=== PATIENT | male | born 2000 | race Caucasian/White ===

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

== ENCOUNTER 2022-11-27 00:31 | Emergency (ER) | payer SELFPAY ==
[2022-11-27 00:31] VITALS: BP 137/60; PULSE 77; RESP 18; TEMP 36.3; O2SAT 100; BMI 20.9
--- NOTE | 2022-11-27 00:59 | EX.ED.DYSGE1 ---
HPI History of Present Illness Chief Complaint: Sore Throat Narrative Narrative: Patient is a 22-year-old male with no significant past medical history. He reports 5 to 6 days of nasal congestion sore throat cough and ear pain. He reports his girlfriend has been sick with similar symptoms. He states he has been giving it time to resolve but he feels each day symptoms are worsening and secondary to this he comes in for evaluation [facility] Medical History no medical history no medical history Home Medications albuterol sulfate 90 mcg/actuation aerosol inhaler 2 puff inhalation Q4H PRN PRN Sob &/Or Wheezing 11/23/20 [History Last Taken Unknown] azelastine 137 mcg (0.1 %) nasal spray aerosol 2 spray intranasal BID #30 mL 11/27/22 [Rx Last Taken Unknown] cefdinir 300 mg capsule 300 mg PO BID 7 days #14 caps 11/27/22 [Rx Last Taken Unknown] prednisone 20 mg tablet 40 mg PO DAILY 7 days #14 tabs 11/27/22 [Rx Last Taken Unknown] Allergy/AdvReac Type Severity Reaction Status Date / Time Penicillins Allergy Rash Verified 07/01/21 09:36 Social History Smoking Status: Never smoker [facility] ED Constitutional Constitutional ED: Denies chills or fever(s) ENT ENT ED: Reports ear pain, rhinorrhea and sore throat Cardiovascular Cardiovascular: Denies chest pain Respiratory/Chest Respiratory/Chest: Reports cough; Denies dyspnea Gastrointestinal Gastrointestinal: Denies abdominal pain, diarrhea, nausea or vomiting Genitourinary Genitourinary ED: Denies dysuria Musculoskeletal Musculoskeletal: Reports myalgias Integumentary Denies rash Neurologic Neurologic: Reports headache(s) Hematologic/Lymphatic Hematologic/Lymphatic: Denies easy bleeding or easy bruising EXAM Physical Exam Const Vital Signs: 11/27/22 00:31 11/27/22 00:31 Temperature 97.3 F L 97.3 F L Temperature Source Temporal Temporal Pulse Rate 77 77 Respiratory Rate 18 18 Blood Pressure 137/60 H 137/60 H Blood Pressure Mean 85 85 Pulse Ox 100 100 Oxygen Delivery Method Room Air Room Air Positive well nourished and well developed General Appearance ED: well developed HEENT HEENT Narrative: Right TM is erythematous and bulging with positive air-fluid level consistent with otitis media. Left TM is retracted but shows no secondary changes to suggest infection and bilateral canals are normal. Patient's nasal mucosa is hyperemic and boggy with enlarged inferior nasal turbinates. Patient has diffuse erythema in the posterior pharynx with mild swelling and ulceration across the uvula consistent with uvulitis but otherwise no hard palate petechiae change in voice trismus or difficulty with secretions Eyes PERRL and EOMs intact bilaterally Neck supple Neck Narrative: No nuchal rigidity or meningeal signs present Positive anterior cervical lymphadenopathy noted Resp normal respiratory effort and clear to auscultation bilaterally Cardio regular rate and regular rhythm GI normal to inspection, nondistended, normoactive bowel sounds, non-tender, non-distended and no masses Auscultation: normoactive bowel sounds Palpation: soft Extremity normal to inspection Neuro oriented x3 and CN's II-XII intact bilaterally Sensorium / Orientation: alert Psych mental status grossly normal Skin no rashes or lesions noted MDM MDM MDM Narrative Medical decision making narrative: Patient arrived to the ER afebrile and in no acute distress. His constellation of symptoms congestion cough sore throat and ear pain are all consistent with viral syndrome. Secondary to his elected to check for influenza and COVID but also rapid strep because of his sore throat. Viral swabs were negative and strep swab was also negative consistent with his physical exam. At this time I do feel he has a underlying viral syndrome which has been the main cause of his symptoms but his physical exam today also shows a secondary ear infection on the right. As it is concerning that this could be bacterial in nature I will put him on a round of antibiotic. However as he does not have signs of peritonsillar retropharyngeal abscess or respiratory distress he can be discharged home with symptomatic care Discharge Plan Triage Chief Complaint: Sore Throat ED Provider: Jeremiah Alonso Dx/Rx/DC Orders Clinical Impression: Acute right otitis media, Uvulitis, Viral syndrome Instructions: ED Otitis Media Antibiotic ..., ED Uvulitis, ED Viral Syndrome (Adult) Prescriptions: New prednisone 20 mg tablet 40 mg PO DAILY 7 Days Qty: 14 0RF cefdinir 300 mg capsule 300 mg PO BID 7 Days Qty: 14 0RF azelastine 137 mcg (0.1 %) aerosol,spray 2 spray intranasal BID Qty: 30 0RF Rx Instructions: administer into each nostril No Action albuterol sulfate 8.5 GM HFA aerosol inhaler 2 puff INHALATION Q4H PRN PRN (Reason: Sob &/Or Wheezing) Primary Care Provider: Care Physician,No Primary Referrals: Ji,Cristel, DO [Med Staff - Pharmacy Account Director] - Care Physician,No Primary [Primary Care Provider] - Disposition Disposition: Home, Self Care
[2022-11-27] MEDS: dexAMETHasone 10 MG/ML Vial PO.IVFORM (01:00)
[2022-11-27] MEDS: Cefdinir 300 MG Capsule PO (01:48)
== END 2022-11-27 01:50 | disposition home or self-care (01) ==
PROVIDERS: Emergency Provider Emergency Medicine; Visit Provider Emergency Medicine
DX: H66.91 Otitis media, unspecified, right ear (principal); B34.9 Viral infection, unspecified
CPT/HCPCS: 87428; 87880; 99283

== ENCOUNTER 2024-10-18 12:45 | Emergency (ER) | payer OTHER, SELFPAY ==
[2024-10-18 12:45] VITALS: BP 151/81; PULSE 128; PULSE 131; RESP 26; TEMP 36.7; O2SAT 100; BMI 24.2
[2024-10-18 12:55] VITALS: O2SAT 97
--- NOTE | 2024-10-18 13:02 | RAD_ITS ---
STUDY: X-RAY CHEST REASON FOR EXAM: Male, 24 years old. cough TECHNIQUE: Frontal and lateral views of the chest. COMPARISON: June 18, 2017 FINDINGS: The lungs are clear and expanded. There is no demonstrated pleural abnormality. Normal size heart. Normal mediastinum and oren. Normal visualized pulmonary arteries. Normal visualized aortic arch and descending thoracic aorta. Normal visualized thoracic spine. Normal visualized ribs, clavicles, and shoulders. There is no demonstrated abnormality of the visualized soft tissue structures of the upper abdomen. RAD/Chest PA and Lateral IMPRESSION: Normal x-ray examination of the chest. Electronically Signed: Tad Diamond MD at 13:27 [facility] ,
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
[2024-10-18 14:45] VITALS: BP 100/70; PULSE 130; RESP 20; TEMP 38.1; O2SAT 97
[2024-10-18 15:26] VITALS: PULSE 132; RESP 21; O2SAT 97
[2024-10-18] MEDS: Ipratropium/Albuterol Sulfate 3 ML AMPUL.NEB INHALATION (15:26)
[2024-10-18] MEDS: Albuterol 2.5 MG/3 ML VIAL.NEB. INHALATION (15:26)
[2024-10-18] MEDS: Acetaminophen 500 MG Tablet 1000 MG PO (15:46)
[2024-10-18] MEDS: predniSONE 20 MG Tablet 60 MG PO (15:47)
== END 2024-10-18 15:50 | disposition home or self-care (01) ==
PROVIDERS: Emergency Provider Emergency Medicine; Visit Provider Emergency Medicine
DX: J20.9 Acute bronchitis, unspecified (principal); F17.210 Nicotine dependence, cigarettes, uncomplicated; B34.9 Viral infection, unspecified; J45.901 Unspecified asthma with (acute) exacerbation
CPT/HCPCS: 71046; 87631; 94640; 99283

== ENCOUNTER 2025-06-03 02:03 | Emergency (ER) | payer OTHER, SELFPAY ==
[2025-06-03 02:05] VITALS: BP 151/96; PULSE 65; RESP 18; TEMP 36.6; O2SAT 100
--- OUTSIDE RECORDS SUMMARY | 2025-06-03 02:17 | XMS RPT_ITS | CCD ---
Author Organization [facility] Care Team Providers Care Park Services Specialist Name Role Phone JUAREZ MAJANO Unavailable Unavailable JUAREZ MAJANO Unavailable Unavailable PROVIDER, UNKNOWN Unavailable Unavailable PROVIDER, UNKNOWN Unavailable Unavailable Tiffanie Barbour Primary Care Provid er Esperanza Garcia Primary Care Provider SHANITA SCOTT Attending Unavailable SHANITA SCOTT Primary Care Unavailable Tiffanie Barbour MD Primary Care Pro vider Daniel HOSPITAL TRAY SERVICE WORKER.Shanita BURKETT Primary Care Provider Robert Eli Attending Unavailable Care Physician, No Primary Primary Care Unava ilable SHANITA SCOTT Primary Care Unavailable SELF Referring Unavailable KATE TORRES Attending Unavailable Allergies Allergy Classification Reported Allergen(s) Allergy Type Date of Onset Reaction(s) Facility (12 sources) Penicillins; Translations: [PENICILLINS] Propensity to adverse reactions to drug (disorder) 4 GI Upset [facility] Repository Medications Current Medications Medication Drug Class(es) Dates Sig (Normalized) Sig (Original) [id number] 200 actuat albuterol 0.09 mg/actuat metered dose inhaler (8 sources) beta2-Adrenergic Agonist Start: 09-28-2023 End: 04-14-2025 take 2 puff(s) by inhalation every four hours as needed albuterol HFA (PROAIR HFA) 90 mcg/actuation inhaler Indications: Wheeze , Family history of asthma Inhale 2 puffs as instructed every 4 hours as needed. 1 each 04/15/2025 Active Start: 08-23-2022 take 2 puff(s) by in halation every four hours as needed albuterol HFA (PROAIR HFA) 90 mcg/actuation inhaler Indications: Wheeze , Family history of asthma Inhale 2 Puffs as instructed every 4 hours as needed. 1 Each 0 08/23/2022 Active Start: 11-23-2020 take 1 puff(s) by in halation every four hours as needed Albuterol Sulfate Active 2 PUFF INHALATION EVERY 4 HOURS NEEDED November 23, 2020 12:00am Comment on above: Inhale 2 Puffs as in structed every 4 hours as needed. azelastine hydrochloride 0.137 mg/actuat metered dose nasal spray (1 source) Histamine-1 Receptor Antagonist Start: 11-27-19 take 1 spray(s) nasal route twice daily Azelastine Active 2 SPRAY INTRANASAL TWICE A DAY November 27, 2022 12:00am administer into each nostril cefdinir 300 mg oral capsule (1 source) Cephalosporin Antibacterial Start: 11-27-19 take 300 mg by mouth twice daily Cefdinir Active 300 MG PO TWICE A DAY 14 November 27, 2022 12:00am clindamycin 150 mg oral capsule (1 source) Lincosamide Antibacterial Start: 09-13-20 End: 09-18-20 take 2 capsules by mouth three times daily clindamycin (CLEOCIN) 150 mg capsule Take 2 capsules by mouth three times daily for 5 days. 30 capsule 0 09/13/2022 09/18/2022 Active Comment on above: Take 2 capsules by out three times daily for 5 days. doxycycline monohydrate 100 mg oral tablet (1 source) Tetracycline-class Drug Start: 08-23-20 End: 08-30-20 take 1 tablet by mouth twice daily doxycycline monohydrate 100 mg tablet Indications: Community acquired pneumonia of right lower lobe of lung Take 1 tablet by mouth twice daily for 7 days. 14 tablet 0 08/23/2022 08/30/2022 Active Comment on above: Take 1 tablet by dom[place] th twice daily for 7 days. famotidine 20 mg oral tablet (2 sources) Histamine-2 Receptor Antagonist Start: 05-20-20 take 1 tablet by mouth once daily famotidine (PEPCID) 20 mg tablet Take 1 tablet by mouth once daily. 30 tablet 05/20/2025 Active lactobacillus acidophilus 460 mg oral capsule (1 source) Start: 09-13-20 Lactobacillus acidophilus (FLORAJEN ACIDOPHILUS) 20 billion cell cap Take 460 mg by mouth once daily. 30 capsule 0 09/13/2022 Active Start: 09-13-2022 Lactobacillus acidophilus (FLORAJEN ACIDOPHILUS) 20 billion cell cap Take 460 mg by mouth once daily. 30 capsule 0 09/13/2022 Active Comment on above: Take 460 mg by mouth once daily. predniSONE 20 mg oral tablet (5 sources) Start: 05-22-2025 End: 05-31-2025 take 3 tablets by mouth once daily, then take 2 tablets by mouth once daily, then take 1 tablet by mouth once daily predniSONE (DELTASONE) 20 mg tablet Indications: Poison rosio Take 3 tablets by mouth once daily for 3 days, THEN 2 tablets once daily for 3 days, THEN 1 tablet once daily for 3 days. 18 tablet 05/22/2025 05/31/2025 Active Start: 05-20-2025 End: 05-29-2025 predniSONE (DELTASONE) 10 mg tablet Take 4 tabs daily for 3 days, then 2 tabs daily for 3 days, then 1 tab daily for 3 days with food. 21 tablet 05/20/2025 05/22/2025 Discontinued Start: 11-27-2022 take 40 mg by mouth once daily Prednisone Active 40 MG PO DAILY 14 November 27, 2022 12:00am Start: 08-23-2022 End: 08-28-2022 take 2 tablets by mouth once daily predniSONE (DELTASONE) 20 mg tablet Take 2 tablets by mouth once daily for 5 days. 10 tablet 0 08/23/2022 08/28/2022 Active Comment on above: Take 2 tablets by [facility] once daily for 5 days. triamcinolone acetonide 0.46308 mg/mg topical ointment (2 sources) Corticosteroid Start: 05-20-2025 triamcinolone (KENALOG) 0.025 % ointment Apply to affected area three times a day. 80 g 05/20/2025 Active Completed/Discontinued Medications Medication Drug Class(es) Dates Sig (Normalized) Sig (Original) benzonatate 100 mg oral capsule (2 sources) Non-narcotic Antitussive Start: 11-26-2019 take 100-200 mg by mouth every eight hours as needed for cough and cough benzonatate (TESSALON PERLES) 100 mg capsule Indications: Cough Take 1-2 capsules by mouth three times daily as needed for Cough. 30 capsule 0 11/26/2019 Active Comment on above: Take 1-2 capsules by mouth three times daily as needed for Cough. fexofenadine hydrochloride 180 mg oral tablet (2 sources) Histamine-1 Receptor Antagonist Start: 07-28-2019 take 1 tablet by mouth once daily fexofenadine (JABIER) 180 mg tablet Take 180 mg by mouth once daily. 11 07/28/2019 Active Comment on above: Take 180 mg by mouth once daily. 12 hr guaiFENesin 600 mg extended release oral tablet (2 sources) Start: 03-18-2019 take 2 tablets by mouth twice daily guaiFENesin (MUCINEX) 600 mg 12 hr tablet Indications: Viral URI with cough Take 2 tablets by mouth twice daily. 30 tablet 0 03/18/2019 Active Comment on above: Take 2 tablets by mo [facility] twice daily. lidocaine hydrochloride 20 mg/ml mucous membrane topical solution (4 sources) Antiarrhythmic, Amide Local Anesthetic Start: 03-18-2019 take 5 mL by mouth every four hours as needed lidocaine viscous (LIDOCAINE VISCOUS) 2 % solution Take 5 mL by mouth every 4 hours as needed. 100 mL 0 11/17/2020 Active Comment on above: Gargle and spit 10-1 5mLs every 3-4 hours as need for throat discomfort. Take 5 mL by mouth e very 4 hours as needed. loratadine 10 mg oral tablet (2 sources) Start: 02-05-2015 take 1 tablet by mouth once daily loratadine (CLARITIN) 10 mg tablet Take 1 tablet by mouth once daily. 30 tablet 11 02/05/2015 Active Comment on above: [facility] Problems Active Problems Problem Classification Problem Date Documented Da te Episodic/Chronic Acute bronchitis (1 source) Acute bronchitis, unspecified; Translations: [Acute bronchitis, unspecified] Onset: 11-18-2024 Episodic Allergic reactions (3 sources) Contact dermatitis due to plants; Translations: [Unspecified contact dermatitis due to plants, except food] Onset: 05-20-2025 05-20-2025 Episodic Asthma (5 sources) Mild intermittent asthma, uncomplicated; Translations: [Mild intermittent asthma] Onset: 09-28-2023 09-28-2023 Chronic Diseases of mouth; excluding dental (1 source) Uvulitis; Translations: [Cellulitis and abscess of mouth] Episodic Disorders of teeth and jaw (1 source) Infection of tooth; Translations: [Periapical abscess without sinus] Episodic Fracture of upper limb (1 source) Fracture of phalanx of finger; Translations: [Fracture of unspecified phalanx of unspecified finger, initial encounter for closed fracture] Episodic Open wounds of extremities (1 source) Laceration of finger; Translations: [Laceration without foreign body of unspecified finger without damage to nail, initial encounter] Episodic Open wounds of head; neck; and trunk (1 source) Nail finding; Translations: [Avulsion of nail plate] Episodic Other eye disorders (1 source) Pain in eye; Translations: [Ocular pain, unspecified eye] Episodic Other lower respiratory disease (1 source) Wheezing; Translations: [Wheeze] Onset: 09-28-2023 Episodic Other upper respiratory disease (5 sources) Allergic rhinitis; Translations: [Allergic rhinitis, unspecified] Onset: 10-24-2007 09-28-2023 Chronic Other upper respiratory infections (1 source) Pharyngitis; Translations: [Acute pharyngitis, unspecified] Episodic Otitis media and related conditions (1 source) Acute right otitis media; Translations: [Otitis media, unspecified, right ear] Episodic Residual codes; unclassified (1 source) Family history of asthma and other chronic lower respiratory diseases; Translations: [Family history of asthma] Onset: 09-28-2023 Episodic Residual codes; unclassified (1 source) Tobacco use; Translations: [Vapes nicotine containing substance] Onset: 09-28-2023 Episodic Residual codes; unclassified (1 source) Family history of asthma; Translations: [Family history of asthma and other chronic lower respiratory diseases] 04-14-2025 Episodic Viral infection (1 source) Viral disease; Translations: [Viral infection, unspecified] Episodic Past or Other Problems Problem Classification Problem Date Documented Da te Episodic/Chronic Other lower respiratory disease (5 sources) Wheezing; Translations: [Wheezing] Onset: 09-28-2023 09-28-2023 Episodic Residual codes; unclassified (4 sources) Nicotine-filled electronic cigarette user; Translations: [Tobacco use] Onset: 09-28-2023 09-28-2023 Episodic Results Test Name Value Interpretation Reference Range Facility [facility] 05-20-2025 CNOV Office Visit (UCWSTR ) LIAM CAMERON ([id number]) 4 M Date Time Provider Department 05/20/25 10:45 AM KATE TORRES WS During your visit today, we recorded the following information about you: Temperature Pulse Respiration Blood pressure 97.4 degrees 56/minute 16/minute 128/70 Weight 77 kg Kate Torres APRN.TIRE CENTER SUPERVISOR 05/20/2025 1:18 PM Signed Subjective Patient ID: Liam is a 24 year old male who presents for Rash (upper body, itching x 4 days). HPI Patient presents to clinic from home with spouse via personal vehicle with rash since Monday Possible exposure to poison rosio or oak on Monday afternoon +itchiness +discomfort Linear rash present on BUE, midback, abdomen, left ear and right side of neck S/s unrelieved with benadryl PO and topical nor calamine lotion Denies wheezing, DANIELE nor SOB Denies food nor environmental allergies Allergic to PCN Albuterol PRN for asthma, last use last year Social ETOH use 3-4x a week, daily nictone vape and no street drug use PAST MEDICAL HISTORY Diagnosis Date Asthma PAST SURGICAL HISTORY Procedure Laterality Date NONE ALLERGIES Penicillins MEDICATIONS albuterol HFA (PROAIR HFA) 90 mcg/actuation inhaler Inhale 2 puffs as instructed every 4 hours as needed. No family history on file. Social History Tobacco Use Smoking status: Never Smokeless tobacco: Never Tobacco comments: VAPE Vaping Use Vaping status: current everyday user Substances: Nicotine Substance Use Topics Alcohol use: Yes Drug use: Never Objective BP 128/70 Pulse (!) 56 Temp 36.3 ?C (97.4 ?F) Resp 16 Wt 77 kg (169 lb 12.1 oz) SpO2 97% BMI 23.02 kg/m? Physical Exam Vitals and nursing note reviewed. Constitutional: Appearance: Normal appearance. He is normal weight. HENT: Head: Normocephalic. Right Ear: Tympanic membrane normal. Left Ear: Tympanic membrane normal. Nose: Nose normal. Mouth/Throat: Lips: [place]. Mouth: Mucous membranes are moist. Pharynx: Oropharynx is clear. Uvula midline. Tonsils: 1+ on the right. 1+ on the left. Eyes: Extraocular Movements: Extraocular movements intact. Pupils: Pupils are equal, round, and reactive to light. Cardiovascular: Rate and Rhythm: Normal rate. Pulses: Normal pulses. Pulmonary: Effort: Pulmonary effort is normal. Breath sounds: Normal breath sounds and air entry. No decreased breath sounds or wheezing. Abdominal: General: Bowel sounds are normal. Palpations: Abdomen is soft. Musculoskeletal: General: Normal range of motion. Cervical back: Normal range of motion. Skin: General: Skin is warm. Capillary Refill: Capillary refill takes less than 2 seconds. Findings: Erythema and rash present. Rash is vesicular. Comments: +streak like, linear rash present Neurological: Mental Status: He is alert and oriented to person, place, and time. Psychiatric: Mood and Affect: Mood normal. Behavior: Behavior normal. Thought Content: Thought content normal. Judgment: Judgment normal. Assessment AND Plan Dermatitis due to plant ASSESSMENT/PLAN: 1. Dermatitis due to plant - ICD9: 692.6, ICD10: L25.5 - Begin oral steroid tx -Prednisone taper - Begin oral pepcid for allergic reaction relief - Begin topical steriod tx with Kenalog topical, do not apply to face nor genitals - May use OTC Anti itch therapy such as Calamine lotion, Oatmeal baths, and Oral Benydryl recommended prn - discussed skin care of rash - wash clothing and bed linen in warm water and dry thoroughly - wear long sleeve, long socks and pants when outdoors in [place] areas - Refrain from scratching if possible to prevent skin breaking - return if skin breaks, develop fever, chills, shortness of breath or rash spreads to genitals or face - return if symptoms persist or worsen. Karen Colmenares NP student TEACHING PROVIDER (Physician/PA/HOSPITAL TRAY SERVICE WORKER) NOTE OF PERSONAL INVOLVEMENT IN CARE: I have personally seen and examined the patient and performed the medical decision-making components. I have reviewed the Advanced Practice Registered Nurse (HOSPITAL TRAY SERVICE WORKER) Student's documentation and verified the findings in the note as written. Any additions or changes are noted in bold/italics. Signature: Kate Torres Date: 05/20/2025 Time: 1:17 PM Referring Provider: SELF [200] Allergies As of Date: 05/20/2025 Noted Allergy Reaction PENICILLINS 12/24/2013 8 - GI Upset Date Reviewed: 05/20/2025 Reviewed by: Echo Kearney MA - Fully Assessed Reason for Visit: Rash [1087] Cmt: upper body, itching x 4 days Primary Visit Diagnosis:Dermatitis due to plant [L25.5] Order(s):predniSONE (DELTASONE) 10 mg tabletTake 4 tabs daily for 3 days, then 2 tabs daily for 3 days, then 1 tab daily for 3 days with food.Disp: 21 tabletRfl: 0 triamcinolone (KENALOG) 0.025 % ointmentApply to affected area three times a day.Disp: 80 (more content not included)... Normal [facility] Chest PA and Lateralon 10-18 Chest PA and Lateral [facility] Imaging Services [address] [place] [id number] Chest PA and Lateral MR#: [id number] Acct: [id number] Name: LIAM CAMERON Rep #: [id number] : 2000 M 24 From: Tad Ramon PCP: Care Physician,No Primary Status: REG ER Study: Chest PA and Lateral Date of Exam: 10/18/24 Exam# [id number] Ordering Dr: Nica Oliveira [id number] STUDY: X-RAY CHEST REASON FOR EXAM: Male, 24 years old. cough TECHNIQUE: Frontal and lateral views of the chest. COMPARISON: June 18, 2017 FINDINGS: The lungs are clear and expanded. There is no demonstrated pleural abnormality. Normal size heart. Normal mediastinum and oren. Normal visualized pulmonary arteries. Normal visualized aortic arch and descending thoracic aorta. Normal visualized thoracic spine. Normal visualized ribs, clavicles, and shoulders. There is no demonstrated abnormality of the visualized soft tissue structures of the upper abdomen. RAD/Chest PA and Lateral IMPRESSION: Normal x-ray examination of the chest. Electronically Signed: Tad Diamond MD at 13:27 EST Reading Location ID and State: [facility] / ID Tel , Service support , CC: BLAS Manzano; No Primary Care Physician Unloading Checker: Signed [facility] Emergency Department Summary on 10-18-2024 Emergency Department Summary [facility] Medical Records Department [address] [place] [id number] Emergency Department Summary 10/18/24 MR#: [id number] Acct: [id number] Name: LIAM CAMERON Rep #: [id number] : 2000 From: Nica ODONNELL PCP: Care Physician,No Primary Status:DEP ER Location: ED HPI History of Present Illness Chief Complaint: Cough Narrative Narrative: 24-year-old male with past medical history of asthma presents with 2 days of fever, chills, body aches, cough and shortness of breath. He tried Robitussin but states she cannot stop coughing. He has been using his inhaler. He smokes. [facility] Home Medications ???Medication ???Instructions ???Recorded ???Last Taken ???Type albuterol sulfate 90 mcg/actuation 2 puff inhalation Q4H PRN PRN Sob 11/23/20 Unknown History aerosol inhaler /Or Wheezing azelastine 137 mcg (0.1 %) nasal 2 spray intranasal BID #30 mL 11/27/22 Unknown Rx spray cefdinir 300 mg capsule 300 mg PO BID 7 days #14 caps 11/27/22 Unknown Rx prednisone 20 mg tablet 40 mg (2 x 20 mg) PO DAILY 7 days 11/27/22 Unknown Rx #14 tabs albuterol sulfate 90 mcg/actuation 1 - 2 puff inhalation Q4H PRN PRN 10/18/24 Unknown Rx aerosol inhaler (Ventolin HFA) Wheezing #1 device azithromycin 250 mg tablet See Rx Instructions PO .COMPLEX #6 10/18/24 Unknown Rx (Zithromax) tabs prednisone 20 mg tablet 40 mg (2 x 20 mg) PO DAILY 5 days 10/18/24 Unknown Rx #10 tabs Allergy/AdvReac Type Severity Reaction Status Date / Time Penicillins Allergy Rash Verified 10/18/24 12:45 Social History Smoking Status: Current every day smoker tobacco type: e-cigarettes ROS ROS ED ROS Narrative Constitutional: Positive for fever, chills, malaise ENT: Positive for sore throat, ear pain, rhinorrhea. Respiratory: Positive for shortness of breath, cough. GI: Negative for abdominal pain, nausea, vomiting, diarrhea. EXAM Physical Exam Narrative Exam Narrative: CONST: Patient sitting in no acute distress. EYES: Normal inspection. ENT: Normal posterior oropharynx, moist mucous membranes. Nares clear, normal TMs. NECK: Normal inspection. No meningismus. RESP: Frequent dry cough, lungs clear. CVS: Regular rate and rhythm, no murmur, no gallop. SKIN: Color normal, no rash, warm, dry, intact. EXTREMITIES: Normal appearance, no pedal edema. NEURO: Alert and answering questions appropriately. PSYCH: Normal affect. Const Vital Signs: 10/18/24 12:45 10/18/24 12:45 10/18/24 12:55 Temperature 98.1 F Temperature Source Oral Pulse Rate 131 H 128 H Respiratory Rate 26 H Respiratory Effort Normal Respiratory Depth Normal Respiratory Pattern Normal Blood Pressure 151/81 H Blood Pressure Mean 104 Pulse Ox 100 Oxygen Delivery Method Room Air Room Air 10/18/24 14:45 10/18/24 15:26 10/18/24 15:26 Temperature 100.6 F H Temperature Source Oral Pulse Rate 130 H 132 H Respiratory Rate 20 H 21 H Respiratory Effort Respiratory Depth Respiratory Pattern Blood Pressure 100/70 Blood Pressure Mean 80 Pulse Ox 97 97 Oxygen Delivery Method Room Air Room Air Physical Exam Const Vital Signs: 10/18/24 12:45 10/18/24 12:45 10/18/24 12:55 Temperature 98.1 F Temperature Source Oral Pulse Rate 131 H 128 H Respiratory Rate 26 H Respiratory Effort Normal Respiratory Depth Normal Respiratory Pattern Normal Blood Pressure 151/81 H Blood Pressure Mean 104 Pulse Ox 100 Oxygen Delivery Method Room Air Room Air 10/18/24 14:45 10/18/24 15:26 10/18/24 15:26 Temperature 100.6 F H Temperature Source Oral Pulse Rate 130 H 132 H Respiratory Rate 20 H 21 H Respiratory Effort Respiratory Depth Respiratory Pattern Blood Pressure 100/70 Blood Pressure Mean 80 Pulse Ox 97 97 Oxygen Delivery Method Room Air Room Air MDM MDM MDM Narrative Medical decision making narrative: Differential: Viral illness, pneumonia Patient had 2 days of constellation of symptoms of myalgias, sore throat, congestion and cough. He is frequently coughing during exam but otherwise appears nontoxic. He was tachycardic around 130 but I think this is because he was coughing so heavily. He was able to speak to me in full sentences in no distress but has a frequent cough with expiratory wheezing. He does not have chest pain or shortness of breath. CXR shows no acute process and viral swab is negative for COVID/influenza/RSV. He initially declined Tylenol or Motrin for his body aches but then developed a fever in the ED and was given Tylenol, DuoNebs, and prednisone 60 mg. I prescribed a prednisone burst, refilled his albuterol inhaler, and azithromycin to cover atypical pneumonia. He was (more content not included)... [facility] M100.678on 10-18-2024 M100.678 Pending SARS-CoV-2 (COVID 19) Negative INFLUENZA A Negative INFLUENZA B Negative RSV PCR Negative [facility] Comment on above: Performed By: #### M 100.678 #### [facility] [address] [place], [address] CNOVon 09-28-2023 CNOV Office Visit (DELFINO) LIAM CAMERON ([id number]) 4 M Date Time Provider Department 09/28/23 2:20 PM SHANITA SCOTT During your visit today, we recorded the following information about you: Temperature Pulse Respiration Blood pressure 98.4 degrees 51/minute 18/minute 108/64 Weight Height 77.1 kg 1.829 m Shanita Scott APRN.TIRE CENTER SUPERVISOR 09/28/2023 3:10 PM Signed [facility] Shanita Scott HOSPITAL TRAY SERVICE WORKER-TIRE CENTER SUPERVISOR [address] [place] [address] Dept Dept. Visit Date: September 28, 2023 Mr.[place] Julissa Cameron Date of : 2000 MRN/E #: [id number] Chief Complaint: Patient presents with: Rx Refills Establish Care History of Present Illness Liam Cameron is a 23 year old male presenting today as a new patient to establish care. I reviewed past medical, surgical, social, and family histories today and updated chart. Allergies, chronic medications, and supplements were also reviewed. PMH of exercise induced asthma. He hasn't had a PCP in a few years. He needs a refill of his Albuterol inhaler today. States his asthma usually only acts up with exercise or strenuous exertion or when he is exposed to dust, etc while at work. 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 He denies nay hospitalizations or ER visits for his asthma. He does vape nicotine products. PAST MEDICAL HISTORY Diagnosis Date Asthma PAST SURGICAL HISTORY Procedure Laterality Date NONE Social History Tobacco Use Smoking status: Never Smokeless tobacco: Never Tobacco comments: VAPE Vaping Use Vaping Use: current everyday user Substances: Nicotine Substance Use Topics Alcohol use: Yes Drug use: Never Social History Social History Narrative Not on file No family history on file. ALLERGIES Allergen Reactions Penicillins GI Upset Current Outpatient Medications Medication Sig albuterol HFA (PROAIR HFA) 90 mcg/actuation inhaler Inhale 2 Puffs as instructed every 4 hours as needed. No current facility-administered medications for this visit. Review of Systems Review of Systems Constitutional: Negative for appetite change, chills, diaphoresis, fatigue, fever and unexpected weight change. HENT: Positive for rhinorrhea. Negative for congestion, ear pain, sinus pressure, sinus pain, sore throat and tinnitus. Eyes: Negative for visual disturbance. Respiratory: Positive for cough (when his asthma acts up), shortness of breath (with exertion) and wheezing (sometimes). Negative for chest tightness. Cardiovascular: Negative for chest pain, palpitations and leg swelling. Gastrointestinal: Negative for abdominal pain, constipation, diarrhea, nausea and vomiting. Endocrine: Negative. Genitourinary: Negative. Musculoskeletal: Negative. Skin: Negative. Allergic/Immunologic: Negative for food allergies and immunocompromised state. Neurological: Negative for dizziness, seizures, syncope, light-headedness and headaches. Hematological: Negative. Psychiatric/Behavioral : Negative. Vital Signs BP 108/64 Pulse 51 Temp 98.4 Resp 18 Ht 6' 0 (1.83m) Wt 170 lb (77.1kg) SpO2 98% BMI 23.05 kg/(m2). Physical Exam Vitals and nursing note reviewed. Constitutional: Appearance: Normal appearance. HENT: Mouth/Throat: Mouth: Mucous membranes are moist. Eyes: Pupils: Pupils are equal, round, and reactive to light. Cardiovascular: Rate and Rhythm: Normal rate and regular rhythm. Heart sounds: Normal heart sounds. Pulmonary: Effort: Pulmonary effort is normal. Breath sounds: Normal breath sounds. Skin: General: Skin is warm and dry. Neurological: Mental Status: He is alert and oriented to person, place, and time. Psychiatric: Mood and Affect: Mood normal. Behavior: Behavior normal. Visit Diagnoses (J45.20) Mild intermittent asthma without complication (primary encounter diagnosis) (R06.2) Wheeze (Z82.5) Family history of asthma (Z72.0) Vapes nicotine containing substance Assessment and Plan 1. Mild intermittent asthma without complication - ICD9: 493.90, ICD10: J45.20 (primary diagnosis) - Mild intermittent asthma stable - Continue current medications - Avoidance of triggers recommended - Asthma education: Environmental control: avoidance of precipitants and use of allergy medications - Follow up as needed should any other issues arise. 2. Wheeze - ICD9: 786.07, ICD10: R06.2 - ALBUTEROL SULFATE HFA 90 MCG/ACTUATION AEROSOL INHALER 3. Family history of asthma - ICD9: V17.5, ICD10: Z82.5 - ALBUTEROL SULFATE HFA 90 MCG/ACTUATION AEROSOL INHALER 4. Vapes nicotine containing substance - ICD9: 305.1, ICD10: Z72.0 - Cessation encouraged. - Physiologic and physical aspects of t (more content not included)... Normal [facility] XR Chest PA and Lateralon IMPRESSION: Questionable small patchy or reticular opacities overlying the right upper lung. Consider follow-up. Unloading Checker: MARGIE Transcribe Date/Time: Aug 23 2022 9:48A Dictated by : NELSON NEWTON MD This examination was interpreted and the report reviewed and electronically signed by: NELSON NEWTON MD on Aug 23 2022 9:54AM [facility] DIVISION OF RADIOLOGY * * *Final Report* * * DATE OF EXAM: Aug 23 2022 9:46AM WOX 5291 - XR CHEST 2V FRONTAL/LAT / PROCEDURE REASON: Wheeze * * * * Physician Interpretation * * * * EXAMINATION: CHEST RADIOGRAPH (2 VIEW FRONTAL & LATERAL) CLINICAL HISTORY: Wheeze MQ: XC2_6 EXAM DATE/TIME: 08/23/2022 9:46 AM COMPARISON: Chest x-ray on 08/09/2019 RESULT: Lines, tubes, and devices: None. Lungs and pleura: Questionable small patchy or reticular opacities overlying the right upper lung. No lung mass. No pleural effusion. No pneumothorax. Cardiomediastinal silhouette: Normal cardiomediastinal silhouette. Bones and soft tissues: Unremarkable. DIVISION OF RADIOLOGY Provider, [facility] - 08/23/2022 * * *Final Report* * * DATE OF EXAM: Aug 23 2022 9:46AM WOX 5291 - XR CHEST 2V FRONTAL/LAT / PROCEDURE REASON: Wheeze * * * * Physician Interpretation * * * * EXAMINATION: CHEST RADIOGRAPH (2 VIEW FRONTAL & LATERAL) CLINICAL HISTORY: Wheeze MQ: XC2_6 EXAM DATE/TIME: 08/23/2022 9:46 AM COMPARISON: Chest x-ray on 08/09/2019 RESULT: Lines, tubes, and devices: None. Lungs and pleura: Questionable small patchy or reticular opacities overlying the right upper lung. No lung mass. No pleural effusion. No pneumothorax. Cardiomediastinal silhouette: Normal cardiomediastinal silhouette. Bones and soft tissues: Unremarkable. IMPRESSION IMPRESSION: Questionable small patchy or reticular opacities overlying the right upper lung. Consider follow-up. Unloading Checker: MARGIE Transcribe Date/Time: Aug 23 2022 9:48A Dictated by : NELSON NEWTON MD This examination was interpreted and the report reviewed and electronically signed by: NELSON NEWTON MD on Aug 23 2022 9:54AM EST [facility] Radiology Study observation (narrative) [facility] XR Chest PA and LateralOrder ed By: [facility] Provider on 08-23-2022 [facility] Progress Noteon 08-09-2021 Web Page Designer Authentication Interface Message Text Patient ID: Liam Cameron is a 20 y.o. male. His chief complaint(s) include: Pharyngitis Assessment 1. Sore throat Plan Liam was seen today for pharyngitis. Diagnoses and all orders for this visit: Sore throat - POCT rapid strep A antigen - POCT mononucleosis antibodies (Monospot) - Strep culture (Clinic Collect) Rest and fluids Tylenol/motrin for discomfort Call for any questions/concerns/pro blems/changes or worsening of sx. Return if symptoms worsen or fail to improve. Subjective He is unaccompanied. Pharyngitis The onset has been acute. The duration has been 5 days. The pattern is persistent. The course is worsening. Characterized by burning, aching and sharp. Symptoms are relieved by ibuprofen and acetaminophen. The patient's symptoms have included a fever, congestion and cough. The patient's symptoms have included no difficulty breathing, no wheezing, no vomiting, no diarrhea and no rash. The patient has had a maximum temperature of 101 degrees. The patient has been exposed to no sick contacts. COVID negative 2 days ago Primary Care Review of Systems Objective Vital Signs 08/09/21 1121 Temp: 36.6 C (97.9 F) TempSrc: Temporal Weight: 68.9 kg There is no height or weight on file to calculate BMI. Physical Exam Nursing note reviewed. Constitutional: He appears well. He is active. No distress. HENT: Head: Atraumatic. Ears: Right Ear: Tympanic membrane normal. Left Ear: Tympanic membrane normal. Nose: Nasal discharge present. Mouth/Throat: Mucous membranes are moist. Pharynx erythema present. Eyes: Conjunctivae are normal. Cardiovascular: Normal rate and regular rhythm. Heart murmur not heard. Pulmonary/Chest: Breath sounds normal. There is normal air entry. Neurological: He is alert. Vitals reviewed: Temperature 36.6 C (97.9 F), temperature source Temporal, weight 68.9 kg. Last Result POCT mononucleosis antibodies (Monospot) Collection Time: 08/09/21 11:46 AM Result Value Ref Range Monospot (Heterophile Antobodies) Negative Negative Red Control Line *Present Clear Background *Present Within Expiration *Yes Lot Number [id number] POCT rapid strep A antigen Collection Time: 08/09/21 11:31 AM Result Value Ref Range Strep A Antigen None Detected None Detected Yellow Solution *Present Red Control Line *Present Clear Background *Present Lot Number [id number] Normal [facility] Strep Cultureon 08-09-2021 Strep Culture Is this specimen malcolm ng sent to an external lab?->No Release to patient->Automatic 23853&Throat swab^^^Throat swab&Throat swab Strep Culture: No Beta hemolytic Streptococci isolated. Source: THRSW Collected: 08/09/21 11:36 Site: Throat swab Received : 08/09/21 19:56 Strep Culture FINAL 08/11/21 11:38 No Beta hemolytic Streptococci isolated. Normal [facility] Comment on above: Performed By: #### S MARIAA #### [place] [address] Progress Noteon 11-19-2020 Web Page Designer Authentication Interface Message Text Patient ID: Liam Cameron is a 20 y.o. male. His chief complaint(s) include: Otalgia (pain for almost 6 days, right side only) and Pharyngitis (having mucous as well, right side only) Assessment 1. Acute suppurative otitis media of right ear without spontaneous rupture of tympanic membrane, recurrence not specified Plan Liam was seen today for otalgia and pharyngitis. Diagnoses and all orders for this visit: Acute suppurative otitis media of right ear without spontaneous rupture of tympanic membrane, recurrence not specified - cefdinir (OMNICEF) 300 MG capsule; Take 1 Capsule (300 mg) by mouth 2 times daily for 10 days Return if symptoms worsen or fail to improve. Will treat right AOM with cefdinir. Also discussed supportive care measures for symptoms. Will follow up if not improving in 2-3 days after starting antibiotics. Subjective HPI Comments: Right ear pain and sore throat x 5-6 days, not improving. Went to ED, given steroids and didn't help. COVID and strep were negative. Doing cold medicine, not helping. Had similar issue a few weeks ago, COVID was negative then as well. Symptoms got better then got worse again last week. No known sick contacts. No fevers. Taking tylenol. Not helping much. Eating okay, does hurt with eating. Feels mucus in his throat, a little congestion. No headaches. He is accompanied by his mother. Ear Problems The patient's symptoms have included ear pain. These symptoms occur in the right ear. The patient's associated symptoms have included congestion. The patient's associated symptoms have included no fever, no decreased appetite, no difficulty sleeping, no rhinorrhea, no cough, no shortness of breath, no wheezing, no difficulty breathing, no headaches, no abdominal pain, no vomiting, no diarrhea, no decreased urination and no rash. Pharyngitis Review of Systems HENT: Positive for ear pain. Objective Vital Signs 11/19/20 0840 Temp: 36.6 C (97.9 F) TempSrc: Temporal Weight: 69.7 kg There is no height or weight on file to calculate BMI. Physical Exam Constitutional: He appears well. He is active. No distress. HENT: Head: Atraumatic. No sinus tenderness. Ears: Right Ear: External ear normal. Tympanic membrane is erythematous. Purulent effusion is present. Left Ear: Tympanic membrane and external ear normal. Nose: Nasal discharge (mild congestion) present. Mouth/Throat: Mucous membranes are moist. Pharynx erythema present. No tonsillar exudate. Eyes: Conjunctivae are normal. Right eyelid exhibits no discharge. Left eyelid exhibits no discharge. Right conjunctiva is not injected. Left conjunctiva is not injected. Neck: Neck supple. Cardiovascular: Normal rate and regular rhythm. Heart murmur not heard. Pulmonary/Chest: Effort normal and breath sounds normal. There is normal air entry. No respiratory distress. He has no wheezes. He has no rhonchi. He has no rales. Abdominal: Soft. There is no abdominal tenderness. Musculoskeletal: Cervical back: Normal range of motion and neck supple. No rigidity. General: No tenderness. Lymphadenopathy: No right anterior and posterior cervical adenopathy present. No left anterior and posterior cervical adenopathy present. Neurological: He is alert. He exhibits normal muscle tone. Skin: Capillary refill takes less than 3 seconds. Skin is warm. Skin is not pale. Findings: No rash. Normal [facility] Influenza virus A and B and SARS-CoV-2 (COVID-19) Ag panel - Upper respiratory specim SARS-CoV-2 (COVID-19) RNA JEFFRY+probe Ql (Resp) [facility] Work Phone: Vital Signs Date Time Vital Sign Value Performing Clinician Facility 05-20-2025 10:45-0400 Body mass index (BMI) [Ratio] 23.02 kg/m2 Kate Torres H[employer]ITAL [employer] SERVICE WORKER.[facility] Work Phone: [facility] 05-20-2025 10:45-0400 Body temperature 97.39 [degF] Kate Torres HOSPITAL [employer] SERVICE WORKER.[facility] Work Phone: [facility] 05-20-2025 10:45-0400 Body weight 77 kg Kate Torres HOSPITAL [employer] SERVICE WORKER.[employer] Work Phone: [facility] 05-20-2025 10:45-0400 Diastolic blood pressure 70 mm[Hg] Kate Torres HOSPITAL [employer] SERVICE WORKER.[facility] Work Phone: [facility] 05-20-2025 10:45-0400 Heart rate 56 /min Kate Torres HOSPITAL [employer] SERVICE WORKER.[employer] Work Phone: [facility] 05-20-2025 10:45-0400 Respiratory rate 16 /min Kaet Torres HOSPITAL [employer] SERVICE WORKER.[employer] Work Phone: [facility] 05-20-2025 10:45-0400 SaO2% (BldA) [Mass fraction] 97 % Kate Torres HOSPITAL [employer] SERVICE WORKER.[facility] Work Phone: [facility] 05-20-2025 10:45-0400 Systolic blood pressure 128 mm[Hg] Kate Torres HOSPITAL [employer] SERVICE WORKER.[employer] Work Phone: [facility] 11-27-2022 00:31-0500 Body height 182.88 cm [facility] Work Phone: 11-27-2022 00:31-0500 Body mass index (BMI) [Ratio] 20.9 kg/m2 [facility] Work Phone: 11-27-2022 00:31-0500 Body temperature 97.3 [degF] [facility] Work Phone: 11-27-2022 00:31-0500 Body weight 70.3 kg [facility] Work Phone: 11-27-2022 00:31-0500 Diastolic blood pressure 60 mm[Hg] [facility] Work Phone: 11-27-2022 00:31-0500 Heart rate 77 /min [facility] Work Phone: 11-27-2022 00:31-0500 Respiratory rate 18 /min [facility] Work Phone: 11-27-2022 00:31-0500 SaO2% (BldA) [Mass fraction] 100 % [facility] Work Phone: 11-27-2022 00:31-0500 Systolic blood pressure 137 mm[Hg] [facility] Work Phone: 09-13-2022 07:25-0400 Body temperature 96.91 [degF] Massimo Nava HOSPITAL [employer] SERVICE WORKER.[employer] Work Phone: [facility] 09-13-2022 07:25-0400 Body weight 70.76 kg Massimo Nava HOSPITAL [employer] SERVICE WORKER.[employer] Work Phone: [facility] 09-13-2022 07:25-0400 Diastolic blood pressure 62 mm[Hg] Massimo Nava HOSPITAL [employer] SERVICE WORKER.[employer] Work Phone: [facility] 09-13-2022 07:25-0400 Heart rate 62 /min Massimo Brandy HOSPITAL [employer] SERVICE WORKER.[employer]PER[employer] Work Phone: [facility] 09-13-2022 07:25-0400 Respiratory rate 16 /min Massimo Brandy HOSPITAL [employer] SERVICE WORKER.[employer] Work Phone: [facility] 09-13-2022 07:25-0400 SaO2% (BldA) [Mass fraction] 98 % Massimo Brandy HOSPITAL [employer] SERVICE WORKER.[employer] Work Phone: [facility] 09-13-2022 07:25-0400 Systolic blood pressure 102 mm[Hg] Massimo Brandy [employer]PITAL [employer] SERVICE WORKER.[employer] Work Phone: [facility] Encounters Encounter Date Encounter Type Care Provider Facility Start: 05-22-2025 End: 05-22-2025 ambulatory Shanita A Daniel [employer] WORK[employer] Work Phone: [facility] Comment on above: Prednisone medicatio n Start: 05-20-2025 End: 05-20-2025 Patient encounter procedure Kate Nelson H[employer]PITAL [employer] SERV[employer] WORKER.[employer] Work Phone: [facility] Comment on above: Dermatitis due to pl ant (Primary Dx) Start: 05-20-2025 End: 05-20-2025 ambulatory SHANITA A DANIEL Facility:[facility] Start: 04-14-2025 End: 04-15-2025 Refill Shanita Scott [employer]PITAL [employer] SERV[employer] WORKER.[employer] Work Phone: [facility] Comment on above: Refill Request Start: 10-25-2024 End: 10-25-2024 ambulatory Shanita A Joseden H[employer]PITAL [employer] SERV[employer] WORKER.[employer]PER[employer] Work Phone: [facility] Start: 10-25-2024 End: 10-25-2024 Follow-up encounter Shanita Scott HOSPITAL [employer] SERVICE WORKER.[employer] Work Phone: [facility] Comment on above: ED Follow-up ([place] 10/18/2024) Start: 10-18-2024 End: 10-18-2024 Emergency department patient visit Robert Eli Facility:[facility] Start: 09-28-2023 End: 09-28-2023 ambulatory SHANITA SCOTT Facility:[facility] Start: 11-27-2022 End: 11-27-2022 Emergency department patient visit [facility] Start: 09-13-2022 End: 09-13-2022 Patient encounter procedure Massimo Nava H[employer]PITAL [employer] SERV[employer] WORKER.[employer] Work Phone: [facility] Comment on above: Dental infection (Pr imary Dx) Start: 08-24-2022 Telephone encounter Radha clayton PA-C Work Phone: [facility] Comment on above: Results Start: 08-23-2022 End: 08-23-2022 Subsequent hospital visit by physician Xr [facility] Work Phone: Radiology Comment on above: Wheeze [R06.2] Start: 09-22-2017 End: 09-22-2017 Ambulatory JUAREZ MAJNAO [facility] Procedures Date Procedure Procedure Detail Performing Clinician Start: 08-23-2022 Radiologic exam ches t 2 views Nikhil Pradhan H[employer]PITAL [employer] SERV[employer] WORKER.[employer] Work Phone: SARS-CoV-2 & FLU Ant igen (Rapid) Plan of Treatment Date Care Activity Detail Author Start: 07-21-[address] [facility] Start: 06-12-2025 Urine microalbumin profile DTaP,Tdap,Td Vaccine (7 - Td or Tdap) [facility] Start: 09-28-2024 Annual PCP Team Chronic Disease Visit Annual PCP Team Chronic Disease Visit [facility] Start: 07-21-2024 Covid-19 Vaccine ( season) Covid-19 Vaccine ( season) [facility] Start: 07-21-2024 Influenza vaccination Influenza Vaccine (#1) [facility] Start: 07-21-2022 Influenza vaccination INFLUENZA (#1) [facility] Start: 11-20-2021 DEPRESSION ASSESSMENT DEPRESSION ASSESSMENT [facility] Start: 2021 Urine microalbumin profile DTAP,TDAP,TD (1 - Tdap) [facility] Start: 2020 Anxiety Screening Anxiety Screening [facility] Start: 2020 Depression Screening Depression Screening [facility] Start: 2020 HEPATITIS C SCREENING HEPATITIS C SCREENING [facility] Start: 2020 Hepatitis C screening Hepatitis C Screening [facility] Start: 2020 HIV SCREENING HIV SCREENING [facility] Start: 2020 HIV screening HIV Screening [facility] Start: [address] [facility] Start: 2017 HPV Vaccine (1 - Male 3-dose series) HPV Vaccine (1 - Male 3-dose series) [facility] Start: 2016 PEDS TO ADULT TRANSITION ANNUAL ASSESSMENT PEDS TO ADULT TRANSITION ANNUAL ASSESSMENT [facility] Start: 2014 PEDS TO ADULT TRANSITION INITIAL DISCUSSION PEDS TO ADULT TRANSITION INITIAL DISCUSSION [facility] Start: 2013 HPV VACCINE (1 - Male 2-dose series) HPV VACCINE (1 - Male 2-dose series) [facility] Start: 2012 MENINGOCOCCAL B: Consider based on risk (1 of 2 - Risk Bexsero 2-dose series) MENINGOCOCCAL B: Consider based on risk (1 of 2 - Risk Bexsero 2-dose series) [facility] Start: 2006 Asthma Control Test Asthma Control Test [facility] Start: 2004 Asthma Action Plan Asthma Action Plan [facility] Start: 03-24-2003 COVID-19 VACCINE (#1) COVID-19 VACCINE (#1) [facility] Start: 2002 HEPATITIS B (1 of 3 - 3-dose series) HEPATITIS B (1 of 3 - 3-dose series) [facility] Patient Education ED Otitis Medi a Antibiotic ... ED Uvulitis ED Viral Syndrome (Adult) [facility] Work Phone: Patient referral [facility] Work Phone: Streptococcus pyogen es antigen assay Group A Streptococcus Rapid Screen [facility] Work Phone: Immunizations Immunization Date Immunization Notes Care Provider Charmaine oleary 08-04-2020 meningococcal B vacc ine, recombinant, OMV, adjuvanted [facility] [place] Work Phone: [facility] 04-23-2019 meningococcal B vacc ine, recombinant, OMV, adjuvanted [facility] [place] Work Phone: [facility] 04-23-2019 meningococcal polysaccharide (groups A, C, Y and W-135) diphtheria toxoid conjugate vaccine (MCV4P) [facility] [place] Work Phone: [facility] 10-27-2017 influenza, injectabl e, quadrivalent, preservative free [facility] [place] Work Phone: [facility] 10-27-2017 influenza virus vacc ine, unspecified formulation [facility] Work Phone: [facility] 09-06-2016 influenza, injectabl e, quadrivalent, preservative free [facility] Work Phone: [facility] 09-02-2015 influenza virus vacc ine, live, attenuated, for intranasal use [facility] [place] Work Phone: [facility] 06-12-2015 meningococcal polysaccharide (groups A, C, Y and W-135) diphtheria toxoid conjugate vaccine (MCV4P) [facility] Work Phone: [facility] 06-12-2015 tetanus toxoid, redu mac diphtheria toxoid, and acellular pertussis vaccine, adsorbed [facility] Work Phone: [facility] 09-05-2014 influenza virus vacc ine, live, attenuated, for intranasal use [facility] Work Phone: [facility] 09-10-2013 influenza, live, intranasal, quadrivalent [facility] [place] Work Phone: [facility] 08-21-2012 influenza virus vacc ine, live, attenuated, for intranasal use [facility] Work Phone: [facility] 08-31-2011 influenza virus vacc ine, live, attenuated, for intranasal use [facility] [place] Work Phone: [facility] 08-23-2010 influenza virus vacc ine, live, attenuated, for intranasal use [facility] [place] Work Phone: [facility] 09-19-2009 novel Influenza-H1N1 -09, live virus for nasal administration [facility] [place] Work Phone: [facility] 07-24-2009 influenza virus vacc ine, live, attenuated, for intranasal use [facility] [place] Work Phone: [facility] 05-25-2009 hepatitis A vaccine, pediatric/adolescent dosage, 2 dose schedule [facility] [place] Work Phone: [facility] 09-22-2008 influenza virus vacc ine, live, attenuated, for intranasal use [facility] Work Phone: [facility] 11-30-2007 diphtheria, tetanus toxoids and acellular pertussis vaccine, unspecified formulation [facility] Work Phone: [facility] 11-30-2007 hepatitis A vaccine, pediatric/adolescent dosage, 2 dose schedule [facility] Work Phone: [facility] 11-30-2007 measles, mumps and rubella virus vaccine [facility] [place] Work Phone: [facility] 11-30-2007 poliovirus vaccine, inactivated [facility] Work Phone: [facility] 11-30-2007 varicella virus vaccine [facility] [place] [facility] Work Phone: [facility] 09-26-2007 influenza virus vacc ine, whole virus [facility] Work Phone: [facility] 10-05-2005 influenza virus vacc ine, whole virus [facility] Work Phone: [facility] 10-17-2004 influenza virus vacc ine, whole virus [facility] Work Phone: [facility] 09-07-2004 influenza virus vacc ine, whole virus [facility] Work Phone: [facility] 01-15-2004 diphtheria, tetanus toxoids and acellular pertussis vaccine, unspecified formulation [facility] [place] Work Phone: [facility] 01-15-2004 haemophilus influenz ae type b vaccine, PRP-T conjugate [facility] [place] Work Phone: [facility] 01-15-2004 hepatitis B vaccine, pediatric or pediatric/adolescent dosage [facility] Work Phone: [facility] 01-15-2004 measles, mumps and rubella virus vaccine [facility] Work Phone: [facility] 01-15-2004 varicella virus vaccine [facility] [place] [facility] Work Phone: [facility] 09-19-2003 influenza virus vacc ine, whole virus [facility] [place] Work Phone: [facility] 06-18-2003 poliovirus vaccine, inactivated [facility] Work Phone: [facility] 04-18-2003 diphtheria, tetanus toxoids and acellular pertussis vaccine, unspecified formulation [facility] Work Phone: [facility] 04-18-2003 haemophilus influenz ae type b vaccine, PRP-T conjugate [facility] Work Phone: [facility] 04-18-2003 pneumococcal conjuga te vaccine, 7 valent [facility] Work Phone: [facility] 02-13-2003 diphtheria, tetanus toxoids and acellular pertussis vaccine, unspecified formulation [facility] [place] Work Phone: [facility] 02-13-2003 haemophilus influenz ae type b vaccine, PRP-T conjugate [facility] [place] Work Phone: [facility] 02-13-2003 pneumococcal conjuga te vaccine, 7 valent [facility] [place] Work Phone: [facility] 02-13-2003 poliovirus vaccine, inactivated [facility] Work Phone: [facility] 2002 diphtheria, tetanus toxoids and acellular pertussis vaccine, unspecified formulation [facility] Work Phone: [facility] 2002 haemophilus influenz ae type b vaccine, PRP-T conjugate [facility] Work Phone: [facility] 2002 hepatitis B vaccine, pediatric or pediatric/adolescent dosage [facility] [place] Work Phone: [facility] 2002 pneumococcal conjuga te vaccine, 7 valent [facility] Work Phone: [facility] 2002 poliovirus vaccine, inactivated [facility] [place] Work Phone: [facility] 2002 hepatitis B vaccine, pediatric or pediatric/adolescent dosage X[facility] Work Phone: [facility] Payers Date Payer Category Payer Self-pay [id number] 2024 Unknown [id number] 2023 Private Health Insurance [facility] [id number] 2023 Unknown [id number] 2021 Unknown [id number] 2010 Unknown [id number] Unknown ANTHEM [id number] Unknown [id number] Unknown [facility] [id number] Unknown [facility] [id number] Unknown [id number] Social History Date Type Detail Facility Start: 11-06-2017 End: 09-28-2023 Tobacco smoking status NHIS Never smoked tobacco [facility] Work Phone: Start: 11-06-2017 End: 09-28-2023 Tobacco use and exposure Smokeless tobacco non-user [facility] Work Phone: Start: 08-23-2022 End: 09-13-2022 Alcohol intake Not Asked [facility] Start: 2000 Sex Assigned At Not on file [facility] Start: 08-13-2022 End: 09-13-2022 Exposure to SARS-CoV-2 (event) Not sure [facility] Work Phone: Start: 11-27-2022 Tobacco smoking stat us WIIS Unknown if ever smoked [facility] Work Phone: Start: 2000 Sex Assigned At Male [facility] Work Phone: Start: 08-23-2022 End: 09-28-2023 History of Social function [facility] Start: 08-23-2022 End: 09-28-[address] [facility] National Score (1-10 0), lower number is lower risk Not on file [facility] Start: 09-28-2023 Alcoholic beverage intake Current drinker of alcohol (finding) [facility] Start: 09-28-2023 Tobacco Comment [facility] Functional Status Date Assessment Result Facility 06-18-2015 Are you deaf, or do you have serious difficulty hearing No 06/18/2015 10:04 AM Echo Goddard MA No [facility] 06-18-2015 Are you blind, or do you have serious difficulty seeing, even when wearing glasses No 06/18/2015 10:04 AM Echo Goddard MA No [facility] 06-18-2015 Do you have serious difficulty walking or climbing stairs No 06/18/2015 10:04 AM Echo Goddard MA No [facility] 06-18-2015 Do you have difficul ty dressing or bathing No 06/18/2015 10:04 AM Echo Goddard MA No [facility] Mental Status Date Assessment Result Facility 06-18-2015 Because of a physica l, mental, or emotional condition, do you have serious difficulty concentrating, remembering, or making decisions No 06/18/2015 10:04 AM Echo Goddard MA No [facility] Clinical Notes 08-24-2022 to 05-20-2025 Kate Torres APRN.TIRE CENTER SUPERVISOR - 05/20/2025 10:51 AM EDTTelephone Encounter - Karey Churchill MA - 04/15/2025 9:13 AM EDTTelephone Encounter - Karey Churchill MA - 04/15/2025 9:13 AM EDTPatient Instructions Note Date & Type Note Facility 05-20-2025 History of Presen t illness Narrative Images from the original note were not included. Subjective Patient ID: Liam is a 24 year old male who presents for Rash (upper body, itching x 4 days). HPI Patient presents to clinic from home with spouse via personal vehicle with rash since Monday Possible exposure to poison rosio or oak on Monday afternoon +itchiness +discomfort Linear rash present on BUE, midback, abdomen, left ear and right side of neck S/s unrelieved with benadryl PO and topical nor calamine lotion Denies wheezing, DANIELE nor SOB Denies food nor environmental allergies Allergic to PCN Albuterol PRN for asthma, last use last year Social ETOH use 3-4x a week, daily nictone vape and no street drug use PAST MEDICAL HISTORY Diagnosis Date Asthma PAST SURGICAL HISTORY Procedure Laterality Date NONE ALLERGIES Penicillins MEDICATIONS albuterol HFA (PROAIR HFA) 90 mcg/actuation inhaler Inhale 2 puffs as instructed every 4 hours as needed. No family history on file. Social History Tobacco Use Smoking status: Never Smokeless tobacco: Never Tobacco comments: VAPE Vaping Use Vaping status: current everyday user Substances: Nicotine Substance Use Topics Alcohol use: Yes Drug use: Never Objective BP 128/70 Pulse (!) 56 Temp 36.3 C (97.4 F) Resp 16 Wt 77 kg (169 lb 12.1 oz) SpO2 97% BMI 23.02 kg/m Physical Exam Vitals and nursing note reviewed. Constitutional: Appearance: Normal appearance. He is normal weight. HENT: Head: Normocephalic. Right Ear: Tympanic membrane normal. Left Ear: Tympanic membrane normal. Nose: Nose normal. Mouth/Throat: Lips: [place]. Mouth: Mucous membranes are moist. Pharynx: Oropharynx is clear. Uvula midline. Tonsils: 1+ on the right. 1+ on the left. Eyes: Extraocular Movements: Extraocular movements intact. Pupils: Pupils are equal, round, and reactive to light. Cardiovascular: Rate and Rhythm: Normal rate. Pulses: Normal pulses. Pulmonary: Effort: Pulmonary effort is normal. Breath sounds: Normal breath sounds and air entry. No decreased breath sounds or wheezing. Abdominal: General: Bowel sounds are normal. Palpations: Abdomen is soft. Musculoskeletal: General: Normal range of motion. Cervical back: Normal range of motion. Skin: General: Skin is warm. Capillary Refill: Capillary refill takes less than 2 seconds. Findings: Erythema and rash present. Rash is vesicular. Comments: +streak like, linear rash present Neurological: Mental Status: He is alert and oriented to person, place, and time. Psychiatric: Mood and Affect: Mood normal. Behavior: Behavior normal. Thought Content: Thought content normal. Judgment: Judgment normal. Assessment & Plan Dermatitis due to plant ASSESSMENT/PLAN: 1. Dermatitis due to plant - ICD9: 692.6, ICD10: L25.5 - Begin oral steroid tx -Prednisone taper - Begin oral pepcid for allergic reaction relief - Begin topical steriod tx with Kenalog topical, do not apply to face nor genitals - May use OTC Anti itch therapy such as Calamine lotion, Oatmeal baths, and Oral Benydryl recommended prn - discussed skin care of rash - wash clothing and bed linen in warm water and dry thoroughly - wear long sleeve, long socks and pants when outdoors in [place] areas - Refrain from scratching if possible to prevent skin breaking - return if skin breaks, develop fever, chills, shortness of breath or rash spreads to genitals or face - return if symptoms persist or worsen. Karen Colmenares NP student TEACHING PROVIDER (Physician/PA/HOSPITAL TRAY SERVICE WORKER) NOTE OF PERSONAL INVOLVEMENT IN CARE: I have personally seen and examined the patient and performed the medical decision-making components. I have reviewed the Advanced Practice Registered Nurse (HOSPITAL TRAY SERVICE WORKER) Student's documentation and verified the findings in the note as written. Any additions or changes are noted in bold/italics. Signature: Kate Torres Date: 05/20/2025 Time: 1:17 PM documented in this encounter [facility] 05-20-2025 Note HNO ID: [id number] Author: KATE TORRES APRN.TIRE CENTER SUPERVISOR Service: ? Author Type: Nurse Practitioner Type: Progress Notes Filed: 05/20/2025 13:18 Note Text: Subjective Patient ID: Liam is a 24 year old male who presents for Rash (upper body, itching x 4 days). HPI Patient presents to clinic from home with spouse via personal vehicle with rash since Monday Possible exposure to poison rosio or oak on Monday afternoon +itchiness +discomfort Linear rash present on BUE, midback, abdomen, left ear and right side of neck S/s unrelieved with benadryl PO and topical nor calamine lotion Denies wheezing, DANIELE nor SOB Denies food nor environmental allergies Allergic to PCN Albuterol PRN for asthma, last use last year Social ETOH use 3-4x a week, daily nictone vape and no street drug use PAST MEDICAL HISTORY Diagnosis Date Asthma PAST SURGICAL HISTORY Procedure Laterality Date NONE ALLERGIES Penicillins MEDICATIONS albuterol HFA (PROAIR HFA) 90 mcg/actuation inhaler Inhale 2 puffs as instructed every 4 hours as needed. No family history on file. Social History Tobacco Use Smoking status: Never Smokeless tobacco: Never Tobacco comments: VAPE Vaping Use Vaping status: current everyday user Substances: Nicotine Substance Use Topics Alcohol use: Yes Drug use: Never Objective BP 128/70 Pulse (!) 56 Temp 36.3 ?C (97.4 ?F) Resp 16 Wt 77 kg (169 lb 12.1 oz) SpO2 97% BMI 23.02 kg/m? Physical Exam Vitals and nursing note reviewed. Constitutional: Appearance: Normal appearance. He is normal weight. HENT: Head: Normocephalic. Right Ear: Tympanic membrane normal. Left Ear: Tympanic membrane normal. Nose: Nose normal. Mouth/Throat: Lips: [place]. Mouth: Mucous membranes are moist. Pharynx: Oropharynx is clear. Uvula midline. Tonsils: 1+ on the right. 1+ on the left. Eyes: Extraocular Movements: Extraocular movements intact. Pupils: Pupils are equal, round, and reactive to light. Cardiovascular: Rate and Rhythm: Normal rate. Pulses: Normal pulses. Pulmonary: Effort: Pulmonary effort is normal. Breath sounds: Normal breath sounds and air entry. No decreased breath sounds or wheezing. Abdominal: General: Bowel sounds are normal. Palpations: Abdomen is soft. Musculoskeletal: General: Normal range of motion. Cervical back: Normal range of motion. Skin: General: Skin is warm. Capillary Refill: Capillary refill takes less than 2 seconds. Findings: Erythema and rash present. Rash is vesicular. Comments: +streak like, linear rash present Neurological: Mental Status: He is alert and oriented to person, place, and time. Psychiatric: Mood and Affect: Mood normal. Behavior: Behavior normal. Thought Content: Thought content normal. Judgment: Judgment normal. Assessment AND Plan Dermatitis due to plant ASSESSMENT/PLAN: 1. Dermatitis due to plant - ICD9: 692.6, ICD10: L25.5 - Begin oral steroid tx -Prednisone taper - Begin oral pepcid for allergic reaction relief - Begin topical steriod tx with Kenalog topical, do not apply to face nor genitals - May use OTC Anti itch therapy such as Calamine lotion, Oatmeal baths, and Oral Benydryl recommended prn - discussed skin care of rash - wash clothing and bed linen in warm water and dry thoroughly - wear long sleeve, long socks and pants when outdoors in [place] areas - Refrain from scratching if possible to prevent skin breaking - return if skin breaks, develop fever, chills, shortness of breath or rash spreads to genitals or face - return if symptoms persist or worsen. Karen Colmenares NP student TEACHING PROVIDER (Physician/PA/HOSPITAL TRAY SERVICE WORKER) NOTE OF PERSONAL INVOLVEMENT IN CARE: I have personally seen and examined the patient and performed the medical decision-making components. I have reviewed the Advanced Practice Registered Nurse (HOSPITAL TRAY SERVICE WORKER) Student's documentation and verified the findings in the note as written. Any additions or changes are noted in bold/italics. Signature: Katelaith Torres Date: 05/20/2025 Time: 1:17 PM [facility] 04-15-2025 Telephone encounter Note Please help assist with scheduling appointment. Thank you. [facility] 04-15-2025 Miscellaneous Notes Please help assist with scheduling appointment. Thank you. patient electronically requesting refills as follows: Last seen 09/28/23 . Last refill 09/28/23 . No future appointments Requested Prescriptions Pending Prescriptions Disp Refills albuterol HFA (PROAIR HFA) 90 mcg/actuation inhaler 1 each 2 Sig: Inhale 2 puffs as instructed every 4 hours as needed. Please review and advise. Natalia George MA documented in this encounter [facility] 04-15-2025 Telephone encounter Note patient electronically requesting refills as follows: Last seen 09/28/23 . Last refill 09/28/23 . No future appointments Requested Prescriptions Pending Prescriptions Disp Refills albuterol HFA (PROAIR HFA) 90 mcg/actuation inhaler 1 each 2 Sig: Inhale 2 puffs as instructed every 4 hours as needed. Please review and advise. Natalia George MA [facility] 10-25-2024 History of Presen t illness Narrative ED Follow-Up Note Provider Action / FYI: Call completed by: CLARENCE Patient seen in ED: Out of Network ED Contact made with Patient: Yes The patient was identified by Name and Date of . Discussed Care with: patient Patient was seen in the Emergency Department (ED) Location: [place] Date: 10/18/2024 Reason for ED Visit: Acute Viral syndrome/Acute Bronchitis ED Intervention: chest xray New Medications: Azithromycin 250 mg tablet, take 500 mg on day 1 then 250 mg for 4 days. Prednisone 20 mg tablet take 40 mg daily for 5 days Albuterol sulfate 90 mcg inhaler 1-2 puff inhalation Q4h PRN Medication Changes: none Does patient understand medication changes: N/A Can patient afford medication changes: N/A Patient educated on worsening symptoms and when and where to seek additional care: No Patient Education Provided including treatment plan and new orders. Patient provided with appropriate counseling: Yes Based on resistor winder, the following disposition is advised:NA Per pt he is feeling better. Isabela Thompson LPN documented in this encounter [facility] 09-28-2023 Note HNO ID: [id number] Author: Shanita Scott APRN.TIRE CENTER SUPERVISOR Service: ? Author Type: Nurse Practitioner Type: Progress Notes Filed: 09/28/2023 3:10 PM Note Text: [facility] Shanita Scott HOSPITAL TRAY SERVICE WORKER-TIRE CENTER SUPERVISOR [address] [place] [address] Dept Dept. Visit Date: September 28, 2023 Mr.[place] Julissa Cameron Date of : 2000 MRN/E #: [id number] Chief Complaint: Patient presents with: Rx Refills Establish Care History of Present Illness Liam Cameron is a 23 year old male presenting today as a new patient to establish care. I reviewed past medical, surgical, social, and family histories today and updated chart. Allergies, chronic medications, and supplements were also reviewed. PMH of exercise induced asthma. He hasn't had a PCP in a few years. He needs a refill of his Albuterol inhaler today. States his asthma usually only acts up with exercise or strenuous exertion or when he is exposed to dust, etc while at work. 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 He denies nay hospitalizations or ER visits for his asthma. He does vape nicotine products. PAST MEDICAL HISTORY Diagnosis Date Asthma PAST SURGICAL HISTORY Procedure Laterality Date NONE Social History Tobacco Use Smoking status: Never Smokeless tobacco: Never Tobacco comments: VAPE Vaping Use Vaping Use: current everyday user Substances: Nicotine Substance Use Topics Alcohol use: Yes Drug use: Never Social History Social History Narrative Not on file No family history on file. ALLERGIES Allergen Reactions Penicillins GI Upset Current Outpatient Medications Medication Sig albuterol HFA (PROAIR HFA) 90 mcg/actuation inhaler Inhale 2 Puffs as instructed every 4 hours as needed. No current facility-administered medications for this visit. Review of Systems Review of Systems Constitutional: Negative for appetite change, chills, diaphoresis, fatigue, fever and unexpected weight change. HENT: Positive for rhinorrhea. Negative for congestion, ear pain, sinus pressure, sinus pain, sore throat and tinnitus. Eyes: Negative for visual disturbance. Respiratory: Positive for cough (when his asthma acts up), shortness of breath (with exertion) and wheezing (sometimes). Negative for chest tightness. Cardiovascular: Negative for chest pain, palpitations and leg swelling. Gastrointestinal: Negative for abdominal pain, constipation, diarrhea, nausea and vomiting. Endocrine: Negative. Genitourinary: Negative. Musculoskeletal: Negative. Skin: Negative. Allergic/Immunologic: Negative for food allergies and immunocompromised state. Neurological: Negative for dizziness, seizures, syncope, light-headedness and headaches. Hematological: Negative. Psychiatric/Behavioral: Negative. Vital Signs BP 108/64 Pulse 51 Temp 98.4 Resp 18 Ht 6' 0 (1.83m) Wt 170 lb (77.1kg) SpO2 98% BMI 23.05 kg/(m2). Physical Exam Vitals and nursing note reviewed. Constitutional: Appearance: Normal appearance. HENT: Mouth/Throat: Mouth: Mucous membranes are moist. Eyes: Pupils: Pupils are equal, round, and reactive to light. Cardiovascular: Rate and Rhythm: Normal rate and regular rhythm. Heart sounds: Normal heart sounds. Pulmonary: Effort: Pulmonary effort is normal. Breath sounds: Normal breath sounds. Skin: General: Skin is warm and dry. Neurological: Mental Status: He is alert and oriented to person, place, and time. Psychiatric: Mood and Affect: Mood normal. Behavior: Behavior normal. Visit Diagnoses (J45.20) Mild intermittent asthma without complication (primary encounter diagnosis) (R06.2) Wheeze (Z82.5) Family history of asthma (Z72.0) Vapes nicotine containing substance Assessment and Plan 1. Mild intermittent asthma without complication - ICD9: 493.90, ICD10: J45.20 (primary diagnosis) - Mild intermittent asthma stable - Continue current medications - Avoidance of triggers recommended - Asthma education: Environmental control: avoidance of precipitants and use of allergy medications - Follow up as needed should any other issues arise. 2. Wheeze - ICD9: 786.07, ICD10: R06.2 - ALBUTEROL SULFATE HFA 90 MCG/ACTUATION AEROSOL INHALER 3. Family history of asthma - ICD9: V17.5, ICD10: Z82.5 - ALBUTEROL SULFATE HFA 90 MCG/ACTUATION AEROSOL INHALER 4. Vapes nicotine containing substance - ICD9: 305.1, ICD10: Z72.0 - Cessation encouraged. - Physiologic and physical aspects of tobacco addiction as well as strategies for quitting were discussed. - Counseling was given focusing on the harmful effects of this addiction especially given the patient's medical condition(s) which will be worsened because of the chemicals in tobacco. Discussed above plan with patient and/or caregiv (more content not included)... [facility] 09-13-2022 Instructions Massimo Nava APRN.CNP - 09/13/2022 8:13 AM EDT TOOTHACHE: Your exam shows that your toothache is probably due to tooth decay and infection. Poor dental care is the main cause of this problem. Swelling and redness around a painful tooth often means you have a dental abscess. Pain medicine and antibiotics can help reduce symptoms, but you will need to see a dentist within the next few days to have your problem properly treated. Fillings or root canal work may be needed to save your tooth. If the problem is severe, your tooth may need to be pulled. Please return here right away if you have a fever over 101F, can t swallow, or develop severe swelling. documented in this encounter [facility] 09-13-2022 History of Presen t illness Narrative Images from the original note were not included. Subjective HPI Nontoxic-appearing male presents urgent care chief plaint dental pain. Duration of symptoms on and off for the last few months. Patient states he did break his left lower molar a few months ago. Presents today with increased dental pain over the last few days. States he is trying to get in with a dentist. Does not have dental insurance. Has used OTC medications this is helped some with pain management. Denies any difficulty swallowing handling secretions decreased range of motion of neck or trismus pain of floor of mouth. Denies any fever body aches chills productive cough chest pain shortness of breath pleuritic pain hemoptysis nausea vomiting abdominal pain change in bowel or bladder habits. Past medical history prescription medication use and allergies reviewed. .Patient presents with: Dental Problem: left lower tooth broken x couple months PAST MEDICAL HISTORY Diagnosis Date NEGATIVE MEDICAL HISTORY PAST SURGICAL HISTORY Procedure Laterality Date NONE ALLERGIES Penicillins MEDICATIONS clindamycin (CLEOCIN) 150 mg capsule Take 2 capsules by mouth three times daily for 5 days. Lactobacillus acidophilus (FLORAJEN ACIDOPHILUS) 20 billion cell cap Take 460 mg by mouth once daily. albuterol HFA (PROAIR HFA) 90 mcg/actuation inhaler Inhale 2 Puffs as instructed every 4 hours as needed. (Patient not taking: Reported on 09/13/2022) lidocaine viscous (LIDOCAINE VISCOUS) 2 % solution Take 5 mL by mouth every 4 hours as needed. (Patient not taking: Reported on 08/07/2021 ) benzonatate (TESSALON PERLES) 100 mg capsule Take 1-2 capsules by mouth three times daily as needed for Cough. (Patient not taking: Reported on 10/25/2020 ) fexofenadine (JABIER) 180 mg tablet Take 180 mg by mouth once daily. (Patient not taking: Reported on 08/07/2021 ) guaiFENesin (MUCINEX) 600 mg 12 hr tablet Take 2 tablets by mouth twice daily. (Patient not taking: Reported on 08/11/2019 ) lidocaine viscous (LIDOCAINE VISCOUS) 2 % solution Gargle and spit 10-15mLs every 3-4 hours as need for throat discomfort. (Patient not taking: Reported on 08/11/2019 ) loratadine (CLARITIN) 10 mg tablet Take 1 tablet by mouth once daily. (Patient not taking: Reported on 08/11/2019 ) History reviewed. No pertinent family history. Social History Tobacco Use Smoking status: Never Smokeless tobacco: Never BP 102/62 Pulse 62 Temp 36.1 C (96.9 F) Resp 16 Wt 70.8 kg (156 lb) SpO2 98% Review of Systems Constitutional: Negative for chills, fever and malaise/fatigue. HENT: Negative for congestion, ear discharge, ear pain, sinus pain and sore throat. Eyes: Negative for blurred vision, pain, discharge and redness. Respiratory: Negative for cough, hemoptysis, sputum production, shortness of breath, wheezing and stridor. Cardiovascular: Negative for chest pain. Gastrointestinal: Negative for abdominal pain, diarrhea, nausea and vomiting. Musculoskeletal: Negative for myalgias. Skin: Negative for itching and rash. Neurological: Negative for dizziness and headaches. Objective Physical Exam Constitutional: General: He is not in acute distress. Appearance: He is not diaphoretic. HENT: Head: Normocephalic. Jaw: No trismus, tenderness, swelling or pain on movement. Mouth/Throat: Mouth: Mucous membranes are moist. Dentition: Abnormal dentition. Dental tenderness and dental caries present. No dental abscesses. Pharynx: Oropharynx is clear. Uvula midline. No pharyngeal swelling, oropharyngeal exudate, posterior oropharyngeal erythema or uvula swelling. Eyes: Conjunctiva/sclera: Conjunctivae normal. Pupils: Pupils are equal, round, and reactive to light. Cardiovascular: Rate and Rhythm: Normal rate and regular rhythm. Heart sounds: Normal heart sounds. Pulmonary: Effort: Pulmonary effort is normal. No tachypnea, accessory muscle usage or respiratory distress. Breath sounds: Normal breath sounds. No stridor. No wheezing, rhonchi or rales. Abdominal: Palpations: Abdomen is soft. Tenderness: There is no abdominal tenderness. Musculoskeletal: Cervical back: Normal range of motion and neck supple. No rigidity or tenderness. No pain with movement. Normal range of motion. Lymphadenopathy: Cervical: No cervical adenopathy. Skin: General: Skin is warm and dry. Neurological: Mental Status: He is alert and oriented to person, place, and time. ASSESSMENT/PLAN: 1. Dental infection - ICD9: 522.4, ICD10: K04.7 Patient diagnosed with dental infection. Will be placed on clindamycin due to penicillin allergies. Risk factors of clindamycin discussed. Patient was educated on supportive therapies. Patient will follow up with primary care provider as needed. Patient was instructed to immediately proceed to emergency room for any new, worsening, or symptoms lasting longer than anticipated. The patient's clinical presentation is otherwise unremarkable at this time. Based on exam and clinical finding, the patient is stable for discharge. Plan of care was discussed with patient. Patient verbalizes understanding and agrees to plan of care. This note was generated using Ember software. It may contain errors in wording, punctuation, or spelling. Massimo Nava APRN.TIRE CENTER SUPERVISOR documented in this encounter [facility] 08-24-2022 Miscellaneous Notes Patient notified.Nedra Ham LPN Left message for pt to call back. Trang Nichole MA Let patient know their covid19/influenza test was negative. documented in this encounter [facility] Evaluation note Diagnosis Dental infection- Primary Acute apical periodontitis of pulpal origin [facility] [facility] CenterEvaluation noteNo assessment information availableWSt. Charles Hospital Work Phone: Evaluation note* Diagnosis Wheeze Wheezing Family history of asthma [facility] Diagnosis Dermatitis due to plant- Primary Contact dermatitis and other 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 (except food) [facility] Diagnosis Poison rosio- Primary Contact dermatitis and other 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 (except food) documented in this encounter [facility] Summary Purpose Family History No Family History Records FoundNo Family History Records FoundNo Family History Records FoundNo Family History Records FoundNo Family History Records Found Advance Directives Advance Directive Response Recorded Date/ Time Living Will No November 27 3 12:34am Power of Independent Living Specialist No November 27 023 12:34am Chief Complaint and Reason for Visit Chief Complaint SORE THROAT Additional Source Comments (unrecognized sect ion and content) No Status Records FoundNo Status Records FoundNo Status Records FoundNo Status Records FoundNo Status Records Found INFORMATION SOURCE (unrecogn ized section and content) DATE CREATED AUTHOR 05/15/2018 [facility] DATE CREATED AUTHOR AUTHOR'S ORGANIZ ATION 08/12/2021 [facility] DATE CREATED AUTHOR AUTHOR'S ORGANIZ ATION 09/30/2023 [facility] DATE CREATED AUTHOR AUTHOR'S ORGANIZ ATION 11/20/2024 [facility] DATE CREATED AUTHOR AUTHOR'S ORGANIZ ATION 05/22/2025 [facility] Source Comments (unrecognize d section and content) In the event this informatio n is protected by the Federal Confidentiality of Alcohol and Drug Abuse Patient Records regulations: The Federal rules restrict any use of the information to criminally investigate or prosecute any alcohol or drug abuse patient.[facility] the event this information is protected by the Federal Confidentiality of Alcohol and Drug Abuse Patient Records regulations: The Federal rules restrict any use of the information to criminally investigate or prosecute any alcohol or drug abuse patient.[facility] Center[facility] the event this information is protected by the Federal Confidentiality of Alcohol and Drug Abuse Patient Records regulations: The Federal rules restrict any use of the information to criminally investigate or prosecute any alcohol or drug abuse patient.[facility] Center[facility] the event this information is protected by the Federal Confidentiality of Alcohol and Drug Abuse Patient Records regulations: The Federal rules restrict any use of the information to criminally investigate or prosecute any alcohol or drug abuse patient.[facility] Center[facility] the event this information is protected by the Federal Confidentiality of Alcohol and Drug Abuse Patient Records regulations: The Federal rules restrict any use of the information to criminally investigate or prosecute any alcohol or drug abuse patient.[facility] CenterIn the event this information is protected by the Federal Confidentiality of Alcohol and Drug Abuse Patient Records regulations: The Federal rules restrict any use of the information to criminally investigate or prosecute any alcohol or drug abuse patient.[facility] CenterIn the event this information is protected by the Federal Confidentiality of Alcohol and Drug Abuse Patient Records regulations: The Federal rules restrict any use of the information to criminally investigate or prosecute any alcohol or drug abuse patient.[facility] Reason for Visit (unrecogniz ed section and content) Reason Comments Results Reason Comments Dental Problem left lower tooth bro leno x couple months Reason Onset Date Comments ED Follow-up 10/18/2024 [facility] 10/18 Reason Onset Date Comments Refill Request 04/14/2025 Reason Comments Rash upper body, itching x 4 days Specialty Diagnoses / Procedures Referred By Simona brandt Referred To Contact [facility] Diagnoses Poison rosio on upper body since Monday Procedures EST SAME DAY Self [facility] [address] [place] [address] Phone: tel: Referral ID Status Reason Start Date Expiration Date Visits Requested Visits Authorized [id number] Pending Review Financial Clearance Required - OON Payor 05/20/2025 08/18/2025 1 1 Care Teams (unrecognized sec tion and content) [employer] Services Specialist Relationship Specialty Start Date End Date Tiffanie Barbour PCP - General Pediatrics 09/08/10 [employer] Specialist Relationship Specialty Start Date End Date Esperanza Garcia [address] [place] [address] PCP - General Pediatrics 09/13/22 [employer] Specialist Relationship Specialty Start Date End Date Tiffanie Barbour MD PCP - General Pediatrics 09/08/10 09/12/22 [employer] Specialist Relationship Specialty Start Date End Date Shanita Scott, HOSPITAL [employer] SERVICE WORKER.[employer] SUPER[employer] [address] [place] [address] PCP - General Family Medicine 09/28/23 [employer] Specialist Relationship Specialty Start Date End Date Shanita Scott, HOSPITAL TRAY SERVICE WORKER.[employer] SUPERVISOR [address] [place], [place] [id number] PCP - General Family Medicine 09/28/23 [employer] Services Specialist Relationship Specialty Start Date End Date Shanita Scott, HOSPITAL TRAY SERVICE WORKER.[employer] SUPERVISOR [address] [place] [address] PCP - General Family Medicine 09/28/23 [employer] Services Specialist Relationship Specialty Start Date End Date Shanita Scott APRN.CNP [address] [place], [place] [id number] PCP - General Family Medicine 09/28/23 Goals (unrecognized section and content) Goals may be documented in a n alternate section FOR RECORDS PERTAINING TO PATIENTS WHO ARE OR HAVE BEEN ENROLLED IN A CHEMICAL DEPENDENCY/SUBSTANCEABUSE PROGRAM, SOME INFORMATION MAY BE OMITTED. This clinical summary was aggregated from multiple sources. Caution should be exercised in using it in the provision of clinical care. This summary normalizes information from multiple sources, and as a consequence, information in this document may materially change the coding, format and clinical context of patient data. In addition, data may be omitted in some cases. CLINICAL DECISIONS SHOULD BE BASED ON THE PRIMARY CLINICAL RECORDS. [employer] provides no warranty or guarantee of the accuracy or completeness of information in this document.
--- OUTSIDE RECORDS SUMMARY | 2025-06-03 02:17 | XMS RPT_ITS | CCD ---
Author Organization [facility] Care Team Providers Care Precision Agriculture Technician Name Role Phone JUAREZ MAJANO Unavailable Unavailable JUAREZ MAJANO Unavailable Unavailable PROVIDER, UNKNOWN Unavailable Unavailable PROVIDER, UNKNOWN Unavailable Unavailable Tiffanie Barbour Primary Care Provid er Esperanza Garcia Primary Care Provider [phone] SHANITA SCOTT Attending Unavailable SHANITA SCOTT Primary Care Unavailable Tiffanie Barbour MD Primary Care Pro vider Daniel LAYER OUT PLATE GLASS.Shanita BURKETT Primary Care Provider Robert Eli Attending Unavailable Care Physician, No Primary Primary Care Unava ilable SHANITA SCOTT Primary Care Unavailable SELF Referring Unavailable KATE TORRES Attending Unavailable Allergies Allergy Classification Reported Allergen(s) Allergy Type Date of Onset Reaction(s) Facility (12 sources) Penicillins; Translations: [PENICILLINS] Propensity to adverse reactions to drug (disorder) 4 GI Upset [facility] Repository Medications Current Medications Medication Drug Class(es) Dates Sig (Normalized) Sig (Original) [id number] actuat albuterol 0.09 mg/actuat metered dose [...] Comment on above: Take 2 tablets by [facility] once daily for 5 days. triamcinolone acetonide 0.27361 mg/mg topical ointment (2 sources) Corticosteroid Start: [...] on above: Take 2 tablets by [facility] twice daily. lidocaine hydrochloride 20 mg/ml mucous [...] Comment on above: Take 1 tablet by [facility] once daily. Problems Active Problems Problem Classification [...] Test Name Value Interpretation Reference Range Facility [facility] 05-20-2025 CNOV Office Visit (UCWSTR ) LIAM CAMERON ([id number]) 4 M Date Time Provider Department 05/20/25 10:45 AM KATE TORRES WS During your visit today, we recorded the following information about you: Temperature Pulse Respiration Blood pressure 97.4 degrees 56/minute 16/minute 128/70 Weight 77 kg Kate Torres APRN.STACKER OPERATOR 05/20/2025 1:18 PM Signed Subjective Patient ID: [...] membrane normal. Nose: Nose normal. Mouth/Throat: Lips: [place]. Mouth: Mucous membranes are moist. Pharynx: Oropharynx [...] worsen. Karen Colmenares NP student TEACHING PROVIDER (Physician/PA/LAYER OUT PLATE GLASS) NOTE OF PERSONAL INVOLVEMENT IN CARE: I have personally seen and examined the patient and performed the medical decision-making components. I have reviewed the Advanced Practice Registered Nurse (LAYER OUT PLATE GLASS) Student's documentation and verified the findings in [...] day.Disp: 80 (more content not included)... Normal [facility] Chest PA and Lateralon 10-18 Chest PA and Lateral [facility] Imaging Services [address] [place] [address] Chest PA and Lateral MR#: [id number] Acct: [id number] Name: LIAM CAMERON Rep #: [id number] : 2000 M 24 From: Tad Ramon PCP: Care Physician,No Primary Status: REG ER Study: Chest PA and Lateral Date of Exam: 10/18/24 Exam# [id number] Ordering Dr: Nica Oliveira [id number] STUDY: X-RAY CHEST REASON FOR EXAM: Male, [...] 13:27 EST Reading Location ID and State: [facility] / [place] Tel , Service support , CC: BLAS Manzano; No Primary Care Physician Parts Representative: Signed Normal [facility] Emergency Department Summary on 10-18-2024 Emergency Department Summary [facility] Medical Records Department [address] [place] [address] Emergency Department Summary 10/18/24 MR#: [id number] Acct: [id number] Name: LIAM CAMERON Rep #: [id number] : 2000 From: Nica ODONNELL PCP: Care Physician,No Primary Status:DEP ER Location: ED HPI History of Present Illness Chief Complaint: Cough Narrative Narrative: 24-year-old male with past medical history of asthma presents with 2 days of fever, chills, body aches, cough and shortness of breath. He tried Robitussin but states she cannot stop coughing. He has been using his inhaler. He smokes. [facility] Home Medications ???Medication ???Instructions [...] He was (more content not included)... Normal [facility] M100.678on 10-18-2024 M100.678 Pending SARS-CoV-2 (COVID 19) Negative INFLUENZA A Negative INFLUENZA B Negative RSV PCR Negative Normal [facility] Comment on above: Performed By: #### M 100.678 #### [facility] Laboratory [address] [place], [address] CNOVon 09-28-2023 CNOV Office Visit (DELFINO) LIAM CAMERON ([id number]) 4 M Date Time Provider Department 09/28/23 2:20 PM SHANITA SCOTT During your visit today, we recorded the following information about you: Temperature Pulse Respiration Blood pressure 98.4 degrees 51/minute 18/minute 108/64 Weight Height 77.1 kg 1.829 m Shanita Scott APRN.STACKER OPERATOR 09/28/2023 3:10 PM Signed [facility] Shanita Scott LAYER OUT PLATE GLASS-STACKER OPERATOR [address] [place] [address] Dept Dept. Visit Date: September 28, 2023 Mr.[place] Julissa Cameron Date of : 2000 MRN/E #: [id number] Chief Complaint: Patient presents with: Rx Refills [...] of t (more content not included)... Normal [facility] XR Chest PA and Lateralon IMPRESSION: Questionable small patchy or reticular opacities overlying the right upper lung. Consider follow-up. Parts Representative: MARGIE Transcribe Date/Time: Aug 23 2022 9:48A Dictated by : NELSON NEWTON MD This examination was interpreted and the report reviewed and electronically signed by: NELSON NEWTON MD on Aug 23 2022 9:54AM [facility] DIVISION OF RADIOLOGY * * *Final Report* [...] soft tissues: Unremarkable. DIVISION OF RADIOLOGY Provider, [facility] - 08/23/2022 * * *Final Report* * [...] overlying the right upper lung. Consider follow-up. Parts Representative: MARGIE Transcribe Date/Time: Aug 23 2022 9:48A Dictated by : NELSON NEWTON MD This examination was interpreted and the report reviewed and electronically signed by: NELSON NEWTON MD on Aug 23 2022 9:54AM EST [facility] Radiology Study observation (narrative) [facility] XR Chest PA and LateralOrder ed By: [facility] Provider on 08-23-2022 [facility] Progress Noteon 08-09-2021 Environmental Issues Instructor Authentication Interface Message Text Patient ID: Liam [...] Background *Present Within Expiration *Yes Lot Number [id number] POCT rapid strep A antigen Collection Time: 08/09/21 11:31 AM Result Value Ref Range Strep A Antigen None Detected None Detected Yellow Solution *Present Red Control Line *Present Clear Background *Present Lot Number [id number] Normal [facility] Strep Cultureon 08-09-2021 Strep Culture Is this specimen malcolm ng sent to an external lab?->No Release to patient->Automatic 18255&Throat swab^^^Throat swab&Throat swab Strep Culture: No Beta hemolytic Streptococci isolated. Source: THRSW Collected: 08/09/21 11:36 Site: Throat swab Received : 08/09/21 19:56 Strep Culture FINAL 08/11/21 11:38 No Beta hemolytic Streptococci isolated. Normal [facility] Comment on above: Performed By: #### S MARIAA #### [place] [address] Progress Noteon 11-19-2020 Environmental Issues Instructor Authentication Interface Message Text Patient ID: Liam [...] is not pale. Findings: No rash. Normal [facility] Influenza virus A and B and SARS-CoV-2 (COVID-19) Ag panel - Upper respiratory specim SARS-CoV-2 (COVID-19) RNA JEFFRY+probe Ql (Resp) [facility] Work Phone: Vital Signs Date Time Vital Sign Value Performing Clinician Facility 05-20-2025 10:45-0400 Body mass index (BMI) [Ratio] 23.02 kg/m2 Kate Torres L[employer].[facility] Work Phone: [facility] 05-20-2025 10:45-0400 Body temperature 97.39 [degF] Kate Torres L[employer].[facility] Work Phone: [facility] 05-20-2025 10:45-0400 Body weight 77 kg Kate Torres LAYER OUT PLATE GLASS.STACKER OPERATOR Work Phone: [facility] 05-20-2025 10:45-0400 Diastolic blood pressure 70 mm[Hg] Kate Torres L[employer].[facility] Work Phone: [facility] 05-20-2025 10:45-0400 Heart rate 56 /min Kate Torres LAYER OUT PLATE GLASS.STACKER OPERATOR Work Phone: [facility] 05-20-2025 10:45-0400 Respiratory rate 16 /min Kate Torres LAYER OUT PLATE GLASS.STACKER OPERATOR Work Phone: [facility] 05-20-2025 10:45-0400 SaO2% (BldA) [Mass fraction] 97 % Kate Torres L[employer] OUT PLATE [employer].[facility] Work Phone: [facility] 05-20-2025 10:45-0400 Systolic blood pressure 128 mm[Hg] Kate Torres LAYER OUT PLATE GLASS.STACKER OPERATOR Work Phone: [facility] 11-27-2022 00:31-0500 Body height 182.88 cm [facility] Work Phone: 11-27-2022 00:31-0500 Body mass index (BMI) [Ratio] 20.9 kg/m2 [facility] Work Phone: 11-27-2022 00:31-0500 Body temperature 97.3 [degF] [facility] Work Phone: 11-27-2022 00:31-0500 Body weight 70.3 kg [facility] Work Phone: 11-27-2022 00:31-0500 Diastolic blood pressure 60 mm[Hg] [facility] Work Phone: 11-27-2022 00:31-0500 Heart rate 77 /min [facility] Work Phone: 11-27-2022 00:31-0500 Respiratory rate 18 /min [facility] Work Phone: 11-27-2022 00:31-0500 SaO2% (BldA) [Mass fraction] 100 % [facility] Work Phone: 11-27-2022 00:31-0500 Systolic blood pressure 137 mm[Hg] [facility] Work Phone: 09-13-2022 07:25-0400 Body temperature 96.91 [degF] Massimo Nava LAYER OUT PLATE GLASS.STACKER OPERATOR Work Phone: [facility] 09-13-2022 07:25-0400 Body weight 70.76 kg Massimo Nava LAYER OUT PLATE GLASS.STACKER OPERATOR Work Phone: [facility] 09-13-2022 07:25-0400 Diastolic blood pressure 62 mm[Hg] Massimo Nava LAYER OUT PLATE GLASS.STACKER OPERATOR Work Phone: [facility] 09-13-2022 07:25-0400 Heart rate 62 /min Massimo Brandy LAYER OUT PLATE GLASS.STACKER OPERATOR Work Phone: [facility] 09-13-2022 07:25-0400 Respiratory rate 16 /min Massimo Brandy LAYER OUT PLATE GLASS.STACKER OPERATOR Work Phone: [facility] 09-13-2022 07:25-0400 SaO2% (BldA) [Mass fraction] 98 % Massimo Brandy LAYER OUT PLATE GLASS.STACKER OPERATOR Work Phone: [facility] 09-13-2022 07:25-0400 Systolic blood pressure 102 mm[Hg] Massimo Brandy LAYER OUT PLATE GLASS.STACKER OPERATOR Work Phone: [facility] Encounters Encounter Date Encounter Type Care Provider Facility Start: 05-22-2025 End: 05-22-2025 ambulatory Shanita A Daniel L[employer].STACKER OPERATOR Work Phone: [facility] Comment on above: Prednisone medicatio n Start: 05-20-2025 End: 05-20-2025 Patient encounter procedure Kate Nelson LAYER OUT PLATE GLASS.STACKER OPERATOR Work Phone: [facility] Comment on above: Dermatitis due to pl ant (Primary Dx) Start: 05-20-2025 End: 05-20-2025 ambulatory SHANITA A DANIEL Facility:[facility] Start: 04-14-2025 End: 04-15-2025 Refill Shanita Scott LAYER OUT PLATE GLASS.STACKER OPERATOR Work Phone: [facility] Comment on above: Refill Request Start: 10-25-2024 End: 10-25-2024 ambulatory Shanita A Joseden LAYER [employer]ATE GLASS.STACKER OPERATOR Work Phone: [facility] Start: 10-25-2024 End: 10-25-2024 Follow-up encounter Shanita Scott LAYER OUT PLATE GLASS.STACKER OPERATOR Work Phone: [facility] Comment on above: ED Follow-up ([place] [facility] 10/18/2024) Start: 10-18-2024 End: 10-18-2024 Emergency department patient visit Robert Eli Facility:[facility] Start: 09-28-2023 End: 09-28-2023 ambulatory SHANITA SCOTT Facility:[facility] Start: 11-27-2022 End: 11-27-2022 Emergency department patient visit [facility] Start: 09-13-2022 End: 09-13-2022 Patient encounter procedure Massimo Nava LAYER OUT PLATE GLASS.STACKER OPERATOR Work Phone: [facility] Comment on above: Dental infection (Pr imary Dx) Start: 08-24-2022 Telephone encounter Radha clayton PA-C Work Phone: [facility] Comment on above: Results Start: 08-23-2022 End: 08-23-2022 Subsequent hospital visit by physician Xr [facility] Work Phone: Radiology Comment on above: Wheeze [R06.2] Start: 09-22-2017 End: 09-22-2017 Ambulatory JUAREZ MAJANO [facility] Procedures Date Procedure Procedure Detail Performing Clinician Start: 08-23-2022 Radiologic exam ches t 2 views Nikhil Pradhan LAYER OUT PLATE GLASS.STACKER OPERATOR Work Phone: SARS-CoV-2 & FLU Ant igen (Rapid) Plan of Treatment Date Care Activity Detail Author Start: 07-21-2025 Influenza vaccination [facility] Start: 06-12-2025 Urine microalbumin profile DTaP,Tdap,Td Vaccine (7 - Td or Tdap) [facility] Start: 09-28-2024 Annual PCP Team Chronic Disease Visit Annual PCP Team Chronic Disease Visit [facility] Start: 07-21-2024 Covid-19 Vaccine ( season) Covid-19 Vaccine ( season) [facility] Start: 07-21-2024 Influenza vaccination Influenza Vaccine (#1) [facility] Start: 07-21-2022 Influenza vaccination INFLUENZA (#1) [facility] Start: 11-20-2021 DEPRESSION ASSESSMENT DEPRESSION ASSESSMENT [facility] Start: 2021 Urine microalbumin profile DTAP,TDAP,TD (1 - Tdap) [facility] Start: 2020 Anxiety Screening Anxiety Screening [facility] Start: 2020 Depression Screening Depression Screening [facility] Start: 2020 HEPATITIS C SCREENING HEPATITIS C SCREENING [facility] Start: 2020 Hepatitis C screening Hepatitis C Screening [facility] Start: 2020 HIV SCREENING HIV SCREENING [facility] Start: 2020 HIV screening HIV Screening [facility] Start: 2020 Spirometry Spirometry [facility] Start: 2017 HPV Vaccine (1 - Male 3-dose series) HPV Vaccine (1 - Male 3-dose series) [facility] Start: 2016 PEDS TO ADULT TRANSITION ANNUAL ASSESSMENT PEDS TO ADULT TRANSITION ANNUAL ASSESSMENT [facility] Start: 2014 PEDS TO ADULT TRANSITION INITIAL DISCUSSION PEDS TO ADULT TRANSITION INITIAL DISCUSSION [facility] Start: 2013 HPV VACCINE (1 - Male 2-dose series) HPV VACCINE (1 - Male 2-dose series) [facility] Start: 2012 MENINGOCOCCAL B: Consider based on risk (1 of 2 - Risk Bexsero 2-dose series) MENINGOCOCCAL B: Consider based on risk (1 of 2 - Risk Bexsero 2-dose series) [facility] Start: 2006 Asthma Control Test Asthma Control Test [facility] Start: 2004 Asthma Action Plan Asthma Action Plan [facility] Start: 03-24-2003 COVID-19 VACCINE (#1) COVID-19 VACCINE (#1) [facility] Start: 2002 HEPATITIS B (1 of 3 - 3-dose series) HEPATITIS B (1 of 3 - 3-dose series) [facility] Patient Education ED Otitis Medi a Antibiotic ... ED Uvulitis ED Viral Syndrome (Adult) [facility] Work Phone: Patient referral [facility] Work Phone: Streptococcus pyogen es antigen assay Group A Streptococcus Rapid Screen [facility] Work Phone: Immunizations Immunization Date Immunization Notes Care Provider Charmaine oleary 08-04-2020 meningococcal B vacc ine, recombinant, OMV, adjuvanted [facility] Work Phone: [facility] 04-23-2019 meningococcal B vacc ine, recombinant, OMV, adjuvanted [facility] Work Phone: [facility] 04-23-2019 meningococcal polysaccharide (groups A, C, Y and W-135) diphtheria toxoid conjugate vaccine (MCV4P) [facility] Work Phone: [facility] 10-27-2017 influenza, injectabl e, quadrivalent, preservative free [facility] Work Phone: [facility] 10-27-2017 influenza virus vacc ine, unspecified formulation [facility] Work Phone: [facility] 09-06-2016 influenza, injectabl e, quadrivalent, preservative free [facility] Work Phone: [facility] 09-02-2015 influenza virus vacc ine, live, attenuated, for intranasal use [facility] Work Phone: [facility] 06-12-2015 meningococcal polysaccharide (groups A, C, Y and W-135) diphtheria toxoid conjugate vaccine (MCV4P) [facility] Work Phone: [facility] 06-12-2015 tetanus toxoid, redu mac diphtheria toxoid, and acellular pertussis vaccine, adsorbed [facility] Work Phone: [facility] 09-05-2014 influenza virus vacc ine, live, attenuated, for intranasal use [facility] Work Phone: [facility] 09-10-2013 influenza, live, intranasal, quadrivalent [facility] [place] Work Phone: [facility] 08-21-2012 influenza virus vacc ine, live, attenuated, for intranasal use [facility] Work Phone: [facility] 08-31-2011 influenza virus vacc ine, live, attenuated, for intranasal use [facility] [place] Work Phone: [facility] 08-23-2010 influenza virus vacc ine, live, attenuated, for intranasal use [facility] [place] Work Phone: [facility] 09-19-2009 novel Influenza-H1N1 -09, live virus for nasal administration [facility] Work Phone: [facility] 07-24-2009 influenza virus vacc ine, live, attenuated, for intranasal use [facility] [place] Work Phone: [facility] 05-25-2009 hepatitis A vaccine, pediatric/adolescent dosage, 2 dose schedule [facility] [place] Work Phone: [facility] 09-22-2008 influenza virus vacc ine, live, attenuated, for intranasal use [facility] Work Phone: [facility] 11-30-2007 diphtheria, tetanus toxoids and acellular pertussis vaccine, unspecified formulation [facility] Work Phone: [facility] 11-30-2007 hepatitis A vaccine, pediatric/adolescent dosage, 2 dose schedule [facility] Work Phone: [facility] 11-30-2007 measles, mumps and rubella virus vaccine [facility] [place] Work Phone: [facility] 11-30-2007 poliovirus vaccine, inactivated [facility] Work Phone: [facility] 11-30-2007 varicella virus vaccine [facility] Work Phone: [facility] 09-26-2007 influenza virus vacc ine, whole virus [facility] Work Phone: [facility] 10-05-2005 influenza virus vacc ine, whole virus [facility] Work Phone: [facility] 10-17-2004 influenza virus vacc ine, whole virus [facility] Work Phone: [facility] 09-07-2004 influenza virus vacc ine, whole virus [facility] Work Phone: [facility] 01-15-2004 diphtheria, tetanus toxoids and acellular pertussis vaccine, unspecified formulation [facility] [place] Work Phone: [facility] 01-15-2004 haemophilus influenz ae type b vaccine, PRP-T conjugate [facility] [place] Work Phone: [facility] 01-15-2004 hepatitis B vaccine, pediatric or pediatric/adolescent dosage [facility] Work Phone: [facility] 01-15-2004 measles, mumps and rubella virus vaccine Xr [facility] Work Phone: [facility] 01-15-2004 varicella virus vaccine Xr [facility] Work Phone: [facility] 09-19-2003 influenza virus vacc ine, whole virus [facility] [place] Work Phone: [facility] 06-18-2003 poliovirus vaccine, inactivated Xr [facility] Work Phone: [facility] 04-18-2003 diphtheria, tetanus toxoids and acellular pertussis vaccine, unspecified formulation [facility] Work Phone: [facility] 04-18-2003 haemophilus influenz ae type b vaccine, PRP-T conjugate Xr [facility] Work Phone: [facility] 04-18-2003 pneumococcal conjuga te vaccine, 7 valent X[facility] Work Phone: [facility] 02-13-2003 diphtheria, tetanus toxoids and acellular pertussis vaccine, unspecified formulation [facility] [place] Work Phone: [facility] 02-13-2003 haemophilus influenz ae type b vaccine, PRP-T conjugate [facility] [place] Work Phone: [facility] 02-13-2003 pneumococcal conjuga te vaccine, 7 valent [facility] [place] Work Phone: [facility] 02-13-2003 poliovirus vaccine, inactivated Xr [facility] Work Phone: [facility] 2002 diphtheria, tetanus toxoids and acellular pertussis vaccine, unspecified formulation Xr [facility] Work Phone: [facility] 2002 haemophilus influenz ae type b vaccine, PRP-T conjugate Xr [facility] Work Phone: [facility] 2002 hepatitis B vaccine, pediatric or pediatric/adolescent dosage [facility] [place] Work Phone: [facility] 2002 pneumococcal conjuga te vaccine, 7 valent Xr [facility] Work Phone: [facility] 2002 poliovirus vaccine, inactivated [facility] [place] Work Phone: [facility] 2002 hepatitis B vaccine, pediatric or pediatric/adolescent dosage Xr [facility] Work Phone: [facility] Payers Date Payer Category Payer Self-pay [id number] 2024 Unknown [id number] 2023 Private Health Insurance [facility] [id number] 2023 Unknown [id number] 2021 Unknown [id number] 2010 Unknown [id number] Unknown [employer] [id number] Unknown [id number] Unknown [facility] [id number] Unknown [facility] [id number] Unknown [id number] Social History Date Type Detail Facility Start: 11-06-2017 End: 09-28-2023 Tobacco smoking status NHIS Never smoked tobacco [facility] Work Phone: Start: 11-06-2017 End: 09-28-2023 Tobacco use and exposure Smokeless tobacco non-user [facility] Work Phone: Start: 08-23-2022 End: 09-13-2022 Alcohol intake Not Asked [facility] Start: 2000 Sex Assigned At Not on file [facility] Start: 08-13-2022 End: 09-13-2022 Exposure to SARS-CoV-2 (event) Not sure [facility] Work Phone: Start: 11-27-2022 Tobacco smoking stat us COIS Unknown if ever smoked [facility] Work Phone: Start: 2000 Sex Assigned At Male W [facility] Work Phone: Start: 08-23-2022 End: 09-28-2023 History of Social function [facility] Start: 08-23-2022 End: 09-28-2023 Tobacco use panel [facility] National Score (1-10 0), lower number is lower risk Not on file [facility] Start: 09-28-2023 Alcoholic beverage intake Current drinker of alcohol (finding) [facility] Start: 09-28-2023 Tobacco Comment [facility] Functional Status Date Assessment Result Facility 06-18-2015 Are you deaf, or do you have serious difficulty hearing No 06/18/2015 10:04 AM Echo Goddard MA No [facility] 06-18-2015 Are you blind, or do you have serious difficulty seeing, even when wearing glasses No 06/18/2015 10:04 AM Echo Goddard MA No [facility] 06-18-2015 Do you have serious difficulty walking or climbing stairs No 06/18/2015 10:04 AM Echo Goddard MA No [facility] 06-18-2015 Do you have difficul ty dressing or bathing No 06/18/2015 10:04 AM Echo Goddard MA No [facility] Mental Status Date Assessment Result Facility 06-18-2015 Because of a physica l, mental, or emotional condition, do you have serious difficulty concentrating, remembering, or making decisions No 06/18/2015 10:04 AM Echo Goddard MA No [facility] Clinical Notes 08-24-2022 to 05-20-2025 Kate Torres APRN.STACKER OPERATOR - 05/20/2025 10:51 AM EDTTelephone Encounter - [...] membrane normal. Nose: Nose normal. Mouth/Throat: Lips: [place]. Mouth: Mucous membranes are moist. Pharynx: Oropharynx [...] worsen. Karen Colmenares NP student TEACHING PROVIDER (Physician/PA/LAYER OUT PLATE GLASS) NOTE OF PERSONAL INVOLVEMENT IN CARE: I have personally seen and examined the patient and performed the medical decision-making components. I have reviewed the Advanced Practice Registered Nurse (LAYER OUT PLATE GLASS) Student's documentation and verified the findings in the note as written. Any additions or changes are noted in bold/italics. Signature: Kate Torres Date: 05/20/2025 Time: 1:17 PM documented in this encounter [facility] 05-20-2025 Note HNO ID: [id number] Author: KATE TORRES APRN.STACKER OPERATOR Service: ? Author Type: Nurse Practitioner Type: [...] membrane normal. Nose: Nose normal. Mouth/Throat: Lips: [place]. Mouth: Mucous membranes are moist. Pharynx: Oropharynx [...] worsen. Karen Colmenares NP student TEACHING PROVIDER (Physician/PA/[employer]ER [employer]) NOTE OF PERSONAL INVOLVEMENT IN CARE: I have personally seen and examined the patient and performed the medical decision-making components. I have reviewed the Advanced Practice Registered Nurse ([employer]ATE [employer]) Student's documentation and verified the findings in the note as written. Any additions or changes are noted in bold/italics. Signature: Katelaith Torres Date: 05/20/2025 Time: 1:17 PM [facility] 04-15-2025 Telephone encounter Note Please help assist with scheduling appointment. Thank you. [facility] 04-15-2025 Miscellaneous Notes Please help assist with [...] Natalia George MA documented in this encounter [facility] 04-15-2025 Telephone encounter Note patient electronically requesting refills as follows: Last seen 09/28/23 . Last refill 09/28/23 . No future appointments Requested Prescriptions Pending Prescriptions Disp Refills albuterol HFA (PROAIR HFA) 90 mcg/actuation inhaler 1 each 2 Sig: Inhale 2 puffs as instructed every 4 hours as needed. Please review and advise. Natalia George MA [facility] 10-25-2024 History of Presen t illness Narrative ED Follow-Up Note Provider Action / FYI: Call completed by: CLARENCE Patient seen in ED: Out of Network ED Contact made with Patient: Yes The patient was identified by Name and Date of . Discussed Care with: patient Patient was seen in the Emergency Department (ED) Location: [place] Date: 10/18/2024 Reason for ED Visit: Acute [...] provided with appropriate counseling: Yes Based on cable lacer, the following disposition is advised:NA Per pt he is feeling better. Isabela Thompson LPN documented in this encounter [facility] 09-28-2023 Note HNO ID: [id number] Author: Shanita Scott APRN.STACKER OPERATOR Service: ? Author Type: Nurse Practitioner Type: Progress Notes Filed: 09/28/2023 3:10 PM Note Text: [facility] Shanita Scott LAYER OUT PLATE GLASS-STACKER OPERATOR [address] [place] [address] Dept Dept. Visit Date: September 28, 2023 Mr.[place] Julissa Cameron Date of : 2000 MRN/E #: [id number] Chief Complaint: Patient presents with: Rx Refills [...] patient and/or caregiv (more content not included)... [facility] 09-13-2022 Instructions Massimo Nava APRN.CNP - 09/13/2022 [...] develop severe swelling. documented in this encounter [facility] 09-13-2022 History of Presen t illness Narrative [...] of care. This note was generated using Q-Sensei software. It may contain errors in wording, punctuation, or spelling. Massimo Nava APRN.STACKER OPERATOR documented in this encounter [facility] 08-24-2022 Miscellaneous Notes Patient notified.Nedra Ham LPN Left message for pt to call back. Trang Nichole MA Let patient know their covid19/influenza test was negative. 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 (except food) [facility] Diagnosis Poison rosio- Primary Contact dermatitis and other 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 (except food) documented in this encounter [facility] Summary Purpose Family History No Family History Records FoundNo Family History Records FoundNo Family History Records FoundNo Family History Records FoundNo Family History Records Found Advance Directives Advance Directive Response Recorded Date/ Time Living Will No November 27 3 12:34am Power of Enrollment Representative No November 27 023 12:34am Chief Complaint and Reason for Visit Chief Complaint SORE THROAT Additional Source Comments (unrecognized sect ion and content) No Status Records FoundNo Status Records FoundNo Status Records FoundNo Status Records FoundNo Status Records Found INFORMATION SOURCE (unrecogn ized section and content) DATE CREATED AUTHOR 05/15/2018 [facility] DATE CREATED AUTHOR AUTHOR'S ORGANIZ ATION 08/12/[address] [facility] DATE CREATED AUTHOR AUTHOR'S ORGANIZ ATION 09/30/2023 [facility] DATE CREATED AUTHOR AUTHOR'S ORGANIZ ATION 11/20/2024 [facility] DATE CREATED AUTHOR AUTHOR'S ORGANIZ ATION 05/22/2025 [facility] Source Comments (unrecognize d section and content) In the event this informatio n is protected by the Federal Confidentiality of Alcohol and Drug Abuse Patient Records regulations: The Federal rules restrict any use of the information to criminally investigate or prosecute any alcohol or drug abuse patient.[facility] the event this information is protected by the Federal Confidentiality of Alcohol and Drug Abuse Patient Records regulations: The Federal rules restrict any use of the information to criminally investigate or prosecute any alcohol or drug abuse patient.[facility] the event this information is protected by the Federal Confidentiality of Alcohol and Drug Abuse Patient Records regulations: The Federal rules restrict any use of the information to criminally investigate or prosecute any alcohol or drug abuse patient.[facility] the event this information is protected by the Federal Confidentiality of Alcohol and Drug Abuse Patient Records regulations: The Federal rules restrict any use of the information to criminally investigate or prosecute any alcohol or drug abuse patient.[facility] the event this information is protected by the Federal Confidentiality of Alcohol and Drug Abuse Patient Records regulations: The Federal rules restrict any use of the information to criminally investigate or prosecute any alcohol or drug abuse patient.[facility] the event this information is protected by the Federal Confidentiality of Alcohol and Drug Abuse Patient Records regulations: The Federal rules restrict any use of the information to criminally investigate or prosecute any alcohol or drug abuse patient.[facility] the event this information is protected by the Federal Confidentiality of Alcohol and Drug Abuse Patient Records regulations: The Federal rules restrict any use of the information to criminally investigate or prosecute any alcohol or drug abuse patient.[facility] Reason for Visit (unrecogniz ed section and content) Reason Comments Results Reason Comments Dental Problem left lower tooth bro leno x couple months Reason Onset Date Comments ED Follow-up 10/18/2024 [place] [facility] 10/18 Reason Onset Date Comments Refill Request 04/14/2025 Reason Comments Rash upper body, itching x 4 days Specialty Diagnoses / Procedures Referred By Simona brandt Referred To Contact Internal Medicine / [facility] Diagnoses Poison rosio on upper body since Monday Procedures EST SAME DAY Self [facility] [address] [place] [address] Phone: tel: Referral ID Status Reason Start Date Expiration Date Visits Requested Visits Authorized [id number] Pending Review Financial Clearance Required - [employer] 05/20/2025 08/18/2025 1 1 Care Teams (unrecognized sec tion and content) [employer] Technician Relationship Specialty Start Date End Date Tiffanie Barbour PCP - General Pediatrics 09/08/10 [employer] Technician Relationship Specialty Start Date End Date Esperanza Garcia [address] [place] [address] PCP - General Pediatrics 09/13/22 [employer] Technician Relationship Specialty Start Date End Date Tiffanie Barbour MD PCP - General Pediatrics 09/08/10 09/12/22 [employer] Technician Relationship Specialty Start Date End Date Shanita Scott, LAYER OUT PLATE GLASS.STACKER OPERATOR [address] [place] [address] PCP - General Family Medicine 09/28/23 [employer] Agriculture Technician Relationship Specialty Start Date End Date Shanita Scott, LAYER [employer] PLATE GLASS.STACKER OPERATOR [address], [place] [id number] PCP - General Family Medicine 09/28/23 [employer] Agriculture Technician Relationship Specialty Start Date End Date Shanita Scott, LAYER OUT PLATE GLASS.STACKER OPERATOR [address] [place] [address] PCP - General Family Medicine 09/28/23 [employer] Agriculture Technician Relationship Specialty Start Date End Date Shanita Scott APRN.CNP [address] [place], [place] [id number] PCP - General Family Medicine 09/28/23 Goals [...] BE BASED ON THE PRIMARY CLINICAL RECORDS. [employer] provides no warranty or guarantee of the accuracy or completeness of information in this document.
--- NOTE | 2025-06-03 02:26 | EX.ED.DYSGE1 ---
HPI History of Present Illness Chief Complaint: Dental Informant: patient Narrative Narrative: Patient is a 24-year-old male with reported past medical history of dental caries. He states he has been having mild intermittent right lower dental pain for the past few days but this evening the pain is more severe. He states he took medication to help reduce the pain but there was no improvement and therefore he presents for evaluation. He denies any recent trauma fevers chills or difficulty breathing/swallowing. He states he does have a dentist appointment in the morning but secondary to the persistent/increased pain he cannot wait until then. He does have concern he may have developed an infection secondary to the worsening symptoms. PFSH PFSH Home Medications ?Medication ?Instructions ?Recorded ?Last Taken ?Type azelastine 137 mcg (0.1 %) nasal 2 spray intranasal BID #30 mL 11/27/22 Unknown Rx spray albuterol sulfate 90 mcg/actuation 1 - 2 puff inhalation Q4H PRN PRN 10/18/24 Unknown Rx aerosol inhaler (Ventolin HFA) Wheezing #1 device Allergy/AdvReac Type Severity Reaction Status Date / Time Penicillins Allergy Rash Verified 06/03/25 02:04 Social History Smoking Status: Current every day smoker tobacco type: e-cigarettes ROS ROS ED Constitutional Constitutional ED: Denies chills or fever(s) ENT ENT ED: Reports other Details: Positive dental pain ; Denies rhinorrhea or sore throat Cardiovascular Cardiovascular: Denies chest pain Respiratory/Chest Respiratory/Chest: Denies cough or dyspnea Gastrointestinal Gastrointestinal: Denies abdominal pain, diarrhea, nausea or vomiting Musculoskeletal Musculoskeletal: Denies neck pain Integumentary Denies rash Neurologic Neurologic: Denies headache(s) Hematologic/Lymphatic Hematologic/Lymphatic: Denies easy bleeding or easy bruising Allergic/Immunologic Allergic/Immunologic ED: Denies mouth swelling or tongue swelling EXAM Physical Exam Const Vital Signs: 06/03/25 02:05 Temperature 97.8 F Temperature Source Oral Pulse Rate 65 Respiratory Rate 18 Blood Pressure 151/96 H Blood Pressure Mean 114 Pulse Ox 100 Oxygen Delivery Method Room Air Positive well nourished and well developed General Appearance ED: well developed; Negative for pallor HEENT HEENT Narrative: No tongue or lip swelling no oral lesions no airway edema or compromise No signs of ANUG Dental carry noted in the right lower jaw/molar region. No surrounding erythema or induration/fluctuance to suggest abscess formation. Eyes PERRL and EOMs intact bilaterally Neck supple Neck Narrative: No brawny edema in the submental space to suggest Tim's angina Resp normal respiratory effort and clear to auscultation bilaterally Cardio regular rate and regular rhythm Extremity normal to inspection Neuro oriented x3, CN's II-XII intact bilaterally and no sensory deficits noted Sensorium / Orientation: alert Motor Exam: strength 5/5 throughout Psych mental status grossly normal Skin no rashes or lesions noted and no wounds General Skin Exam: Negative for jaundice or pallor MDM MDM MDM Narrative Medical decision making narrative: Patient presented to the ER hypertensive otherwise with stable vitals. He reported he has been having intermittent dental pain that has worsened this evening without trauma. Physical exam does not show signs of Tim angina or ANUG nor is or airway compromise or findings concerning for systemic infections I do not feel the need for laboratory studies or CT scan. With the patient's worsening pain he most likely has a developing dental infection. However there is no sign of abscess at this time and no need for incision and drain. The patient was placed on antibiotics with concern for developing infection and he was given a dental block as documented below for pain relief. Patient was given a right inferior alveolar dental block using 1.5 mL of 0.5% Marcaine and 1.5 mL of 2% lidocaine with epinephrine. Patient achieved good anesthesia with the injection and tolerated procedure well without complication. History & Record Review Discussion w/independent historian: Patient Discharge Plan Triage Chief Complaint: Dental ED Provider: Jeremiah Alonso Dx/Rx/DC Orders Clinical Impression: Pain, dental, Dental caries Instructions: ED Dental Pain Prescriptions: No Action azelastine 137 mcg (0.1 %) aerosol,spray 2 spray intranasal BID Qty: 30 0RF Rx Instructions: administer into each nostril albuterol sulfate [Ventolin HFA] 90 mcg/actuation HFA aerosol inhaler 1 - 2 puff inhalation Q4H PRN PRN (Reason: Wheezing) Qty: 1 0RF Primary Care Provider: Care Physician,No Primary Referrals: Care Physician,No Primary [Primary Care Provider] - Activity Restrictions/Additional Instructions: Please follow-up with your dentist in the morning as you have scheduled. The medication given in the ER should help reduce the pain until you are evaluated by them. Return to the ER should you have any further concerns Print Language: Vietnamese Disposition Disposition: Home, Self Care Discharge Date/Time: 06/03/25 02:33
[2025-06-03] MEDS: Lidocaine 2% /Epi 1:100 (20ml) 20 ML VIAL INFILT (02:31)
[2025-06-03 02:32] VITALS: BP 138/98; PULSE 63; RESP 18; TEMP 36.7; O2SAT 100
== END 2025-06-03 02:33 | disposition home or self-care (01) ==
PROVIDERS: Emergency Provider Emergency Medicine; Visit Provider Emergency Medicine
DX: K08.89 Other specified disorders of teeth and supporting structures (principal); F17.290 Nicotine dependence, other tobacco product, uncomplicated
CPT/HCPCS: 64400; 99282